=== PATIENT | female | born 1975 | race Caucasian/White ===

== ENCOUNTER 2019-02-01 10:05 | Observation (INO) | payer SELFPAY ==
[2019-02-01] VITALS (70 sets, daily range): BP systolic 141–249; BP diastolic 82–176; PULSE 66–126; RESP 11–22; TEMP 36.3–37; O2SAT 95–99
--- NOTE | 2019-02-01 10:32 | DI.CT_ITS ---
SYMPTOM/DIAGNOSIS: HEADACHE, SYNCOPE, HYPERTENSION, ? PE VS DISSECTION CRANIAL CT (WITHOUT CONTRAST): A noncontrast cranial CT was performed. The ventricular system is normal in appearance. There is no evidence of an intracranial mass lesion. There is no evidence of a subdural or epidural hematoma. No focal areas of decreased attenuation are seen. CONCLUSION: Normal noncontrast Cranial CT. CTA CERVICOCRANIAL: CT angiography was performed with multi slice acquisition and multi planar and 3D reconstruction. CTA HEAD AND CERVICAL: CT angiography was performed with multi slice acquisition and multi planar and 3D reconstruction. CT angiography of the neck and head was performed with bolus infusion of 100 cc's of Omnipaque 350. The visualized aortic arch and great vessels are unremarkable. There is normal appearance of the common carotid arteries bilaterally with no evidence of stenosis or aneurysm. Internal and external carotid arteries appear normal bilaterally with no evidence of stenosis or aneurysm formation. No cervical mass or adenopathy is seen. Tracheal laryngeal structures appear intact. Intracranial internal carotid arteries appear normal bilaterally with no evidence of aneurysm or stenosis. Anterior cerebral, middle cerebral and posterior cerebral arteries and major branches are unremarkable bilaterally with no evidence of aneurysm or stenosis. Right dominant vertebral artery noted. Borderline ectasia of ascending thoracic aorta noted at 41 mm. CONCLUSION: Negative CT angiography neck and head. PE CHEST CT: CT angiography was performed with multi slice acquisition and multi planar and 3D reconstruction. CT angiography of the chest was performed with intravenous infusion of 70 cc's of Omnipaque 350. There is a question of slight ground glass opacity in the lung bases versus mosaic attenuation, doubt acute process. Tracheobronchial tree appears intact. No evidence of pulmonary embolic disease. No thoracic aortic aneurysm or dissection seen. No pleural effusion. No mediastinal or hilar adenopathy. Heart is mildly enlarged. Images obtained through the upper abdomen show unremarkable appearance of visualized portions of the liver, spleen, pancreas, adrenals and kidneys and note is made of a prior cholecystectomy. CONCLUSION: No evidence of pulmonary embolic disease. Mild cardiomegaly.
--- NOTE | 2019-02-01 10:39 | ED.GENADUL_ITS ---
Discharge Plan Disposition Patient Disposition: [facility] INPATIENT Condition: Stable Discharge Details Chief Complaint: Dizzy/Sync Clinical Impression: Syncope, Hypertension, Non-ST elevation [place] (NSTEMI) Primary Care Provider: None,None ED Provider: Pineda Queen Home Meds and New Rx's Prescriptions: No Action No Known Home Meds RF: 0 Medical Decision Making This is a pleasant 43-year-old female with past medical history of hypertension not on any medications secondary to insurance issues, who presents today for evaluation of headache and syncope. She woke up with a headache this morning, she denies any red flags of it being the worst headache of her life, neck pain, seizure. She has no fever or chills. Physical exam demonstrates no neurologic deficits. Patient denies any concerning red flags of chest pain shortness of breath arm neck or shoulder pain or chest heaviness. Initial EKG demonstrates interesting inverted T waves in aVL, V5 and V6, posterior EKG was ordered demonstrates continued inverted T waves in V7, V8, and benign. Questionable less than 1 mm elevation in V1 and V2, no significant reciprocal ST depression, Q wave is present in lead III. No evidence of broad terminal S wave in lead I or inverted T wave in lead III. With no symptoms of chest pain, ACS is certainly unlikely but on the differential. PE is also on the differential but unlikely given her notably atypical symptomatology. With her uncontrolled hypertension, intracranial bleed or stroke is also on the differential. We will get imaging of the head neck and chest for further evaluation. We will rehydrate, treat for her headache, and reassess. 1:20 PM Patient's laboratory work-up has returned, mild white count, hemoglobin stable, electrolytes are normal except for slightly low potassium at 3.3, renal function stable, initial troponin is 0.11, proBNP is 707, with the evidence of inverted lateral T waves, mildly elevated troponin mildly elevated proBNP we did get a CT angios to definitively rule out dissection or PE, CT scan per radiologist is negative for any acute process. Questionable minimal atelectasis. CT scan of the head and neck including CT angios is negative for acute process. With the patient's mildly elevated troponin, mildly elevated proBNP, notable hypertension that has not been up with the 10 of labetalol IV and 25 of metoprolol, I do feel that admission for serial EKGs and troponins, with exercise stress test tomorrow morning is indicated. The patient has been given aspirin. Headache is notably improved at this time, and she continues to have no symptoms of chest pain. I discussed the case with Dr. Fernandez, I have extensively reviewed the treatment plan with the patient. I have addressed all patient concerns at this time. I have also discussed the plan with the admitting physician and they agree with the current assessment and plan and have agreed to assume responsibility for the patient. All parties demonstrate verbal understanding and agreement with our assessment and plan at this time. EKG 10: 15 Rate 96, sinus rhythm, occasional PVC, no significant ST elevations or depressions, inverted T wave is present in lead I, aVL, V5 and V6. no Q wave, no evidence of STEMI, less than [address] elevation in V1. These changes are new compared to EKG from 2006 EKG 10: 49/posterior EKG Rate 102, sinus tachycardia, intervals normal, posterior component of EKG demonstrates inverted T waves in V7, V8, and benign. No evidence of significant ST elevations or depressions. EXAM DATE/TIME: 02/01/2019 11:25 AM CLINICAL HISTORY: 43 years old, female; Signs and symptoms; Other: Syncope, R/O pe vs dissection; Additional info: Syncope, R/O pe vs dissection HX hbp TECHNIQUE: Imaging protocol: Axial computed tomographic angiography images of the chest with intravenous contrast using CT angiography protocol. Coronal and sagittal reformatted images were created and reviewed. 3D rendering: MIP reconstructed images were created and reviewed. Radiation optimization: All CT scans at this facility use at least one of these dose optimization techniques: automated exposure control; mA and/or kV adjustment per patient size (includes targeted exams where dose is matched to clinical indication); or iterative reconstruction. Contrast material: OMNIPAQUE 350; Contrast volume: 70 ml; Contrast route: IV; COMPARISON: No relevant prior studies available. FINDINGS: Pulmonary arteries: Negative for acute pulmonary embolism. Aorta: Normal. No aortic aneurysm. No aortic dissection. Lungs: Patchy groundglass densities bilaterally, nonspecific finding. Differential includes infectious process, chronic interstitial disease, and acute alveolar disease. Clinical correlation necessary. Pleural space: Normal. No pneumothorax. No pleural effusion. Heart: Normal. No cardiomegaly. No pericardial effusion. Lymph nodes: Unremarkable. No enlarged lymph nodes. Bones/joints: Unremarkable. No acute fracture. Soft tissues: Unremarkable. IMPRESSION: 1. Negative for acute pulmonary embolism. 2. Patchy groundglass densities bilaterally, nonspecific finding. Differential includes infectious process, chronic interstitial disease, and acute alveolar disease. Clinical correlation necessary. Dictated and Authenticated by: Cecilia Zhou MD. Ordering:ROYA Sung MD Comparison: No relevant prior studies available. Findings: Brain: Central and cortical brain atrophy evident, appropriate for patient age. There is nonspecific periventricular low attenuation, likely microangiopathic disease. No acute intracranial hemorrhage. Ventricles: Normal. No ventriculomegaly. Bones/joints: Unremarkable. No acute fracture. Sinuses: Visualized sinuses are unremarkable. No acute sinusitis. Mastoid air cells: Visualized mastoid air cells are unremarkable. No mastoid effusion. Soft tissues: Unremarkable. Impression: No acute intracranial abnormality. Dictated and Authenticated by: Cecilia Zhou MD. Ordering:ROYA Sung MD EXAM DATE/TIME: 02/01/2019 10:37 AM CLINICAL HISTORY: 43 years old, female; Signs and symptoms; Other: Headache, syncope, hypertension Technique: Imaging protocol: Axial computed tomographic angiography images of the head with intravenous contrast using CT angiography protocol. Coronal reformatted images were created and reviewed. 3D rendering: MIP reconstructed images were created and reviewed. Radiation optimization: All CT scans at this facility use at least one of these dose optimization techniques: automated exposure control; mA and/or kV adjustment per patient size (includes targeted exams where dose is matched to clinical indication); or iterative reconstruction. Contrast material: OMNIPAQUE 350; Contrast volume: 78 ml; Contrast route: IV; Comparison: CT Private HEAD ROUTINE (Adult) 02/01/2019 11:56 AM Findings: Right internal carotid artery: Unremarkable. Intracranial segment is patent with no significant stenosis. No aneurysm. Right anterior cerebral artery: Unremarkable. No occlusion or significant stenosis. No aneurysm. Right middle cerebral artery: Unremarkable. No occlusion or significant stenosis. No aneurysm. Right posterior cerebral artery: Unremarkable. No occlusion or significant stenosis. No aneurysm. Right vertebral artery: Unremarkable. No occlusion or significant stenosis. No aneurysm. Left internal carotid artery: Unremarkable. Intracranial segment is patent with no significant stenosis. No aneurysm. Left anterior cerebral artery: Unremarkable. No occlusion or significant stenosis. No aneurysm. Left middle cerebral artery: Unremarkable. No occlusion or significant stenosis. No aneurysm. Left posterior cerebral artery: Unremarkable. No occlusion or significant stenosis. No aneurysm. Left vertebral artery: Unremarkable. No occlusion or significant stenosis. No aneurysm. Basilar artery: Unremarkable. No occlusion or significant stenosis. No aneurysm. Impression: No acute findings. Exam: CT Angiography Neck With Contrast EXAM DATE/TIME: 02/01/2019 10:37 AM CLINICAL HISTORY: 43 years old, female; Signs and symptoms; Other: Headache, syncope, hypertension Technique: Imaging protocol: Axial computed tomographic angiography images of the neck with intravenous contrast using CT angiography protocol. Coronal reformatted images were created and reviewed. 3D rendering: MIP reconstructed images were created and reviewed. Radiation optimization: All CT scans at this facility use at least one of these dose optimization techniques: automated exposure control; mA and/or kV adjustment per patient size (includes targeted exams where dose is matched to clinical indication); or iterative reconstruction. Contrast material: OMNIPAQUE 350; Contrast volume: 78 ml; Contrast route: IV; Comparison: CT Private HEAD ROUTINE (Adult) 02/01/2019 11:56 AM Findings: VASCULATURE: Right common carotid artery: Normal. No significant stenosis. No dissection or occlusion. Right internal carotid artery: Normal. Extracranial segment is patent with no significant stenosis. No dissection or occlusion. Right external carotid artery: Normal. No occlusion or significant stenosis. Right vertebral artery: Right vertebral artery is dominant. Left common carotid artery: Normal. No significant stenosis. No dissection or occlusion. Left internal carotid artery: Normal. Extracranial segment is patent with no significant stenosis. No dissection or occlusion. Left external carotid artery: Normal. No occlusion or significant stenosis. Left vertebral artery: Normal. No significant stenosis. No dissection or occlusion. NECK: Bones/joints: No acute fracture. Soft tissues: Normal. No significant soft tissue swelling. Impression: No significant stenosis or occlusion. COMMENT: Reference per NASCET criteria for degree of stenosis: Mild: less than 50% stenosis. Moderate: 50-69% stenosis. Severe: 70-94% stenosis. Near occlusion: 95-99% stenosis. Dictated and Authenticated by: Cecilia Zhou MD. Ordering:ROYA Sung MD HPI General Date/Time Provider Initiated Documentation: 02/01/19 10:11 . HPI Narrative: This is a pleasant 44-year-old female with past medical history of hypertension and migraines for which she does not take any medication secondary to lack of insurance and cost, who presents today for evaluation of headache and syncope. Patient states that this morning she woke up with a headache, which is definitely not the worst headache of her life. There is mild to moderate in nature and she states that it feels like it is a combination of her chronic migraines and headache secondary to hypertension. Patient states that she felt nauseous throughout the day, and then later this morning went to vomit, however as she was walking to vomit she syncopized, fell and hit the left side of her face. She was able to get up and walk around after this but did feel notably lightheaded after that event. She denies any vision changes, or headache red flags of worst headache of life, thunderclap headache, neck pain, fever, chills, concerning family history of polycystic kidney disease, Marfan syndrome, Sanjiv- Danlos syndrome, abdominal aortic aneurysm, aortic dissection, or intracranial aneurysm. She denies any neck pain, chest pain, chest tightness, pleuritic chest pain, shortness of breath, chest heaviness. She denies any previous cardiac disease. Denies PE risk factors such as recent long car rides, immobilization, recent surgery, prior history of DVT or PE, family history of PE or DVT, morbid obesity, exogenous estrogen and smoking, hemoptysis, history of cancer. Related Data Home Medications Medication Instructions Recorded Confirmed Unknown [No Known Home Meds] 02/01/19 02/01/19 Allergies Allergy/AdvReac Type Severity Reaction Status Date / Time No Known Allergies Allergy Unverified 02/01/19 12:38 General Stated Complaint: GenMedical SASHA: 3 Review of Systems Review of Systems All systems reviewed & are unremarkable except as noted in HPI and below PFSH Social History Smoking/Tobacco Use Status: Current every day Tobacco Type: cigarettes Smoking cigarettes per day: 5 Substance use type: does not use Exam Narrative Exam Narrative: 1.Const: Well-nourished, Well-developed, appearing stated age 2.Eyes: PERRL, no conjunctival injection, and symmetrical lids. Minimal horizontal nystagmus, no vertical or rotatory nystagmus. 3.ENT: Atraumatic external nose and ears. Moist MM. Neck: Symmetric, trachea midline, No thyromegaly. Small bruise over her left lateral orbit. There is no evidence of raccoon eyes, álvarez sign, CSF rhinorrhea, mastoid tenderness, cranial crepitus, hemotympanum, exophthalmos, or hyphema. Patient demonstrates intact dentition with no signs of tooth avulsion or fracture, no signs of jaw deformity, no evidence of a LeFort's fracture, with an intact palate, nose and orbital region. There is no evidence of a nasal septal hematoma. No proptosis. Jaw closes symmetrically. Airway is clear. Patient demonstrates good movement of cervical neck. There is no nuchal rigidity, no nuchal tenderness. Patient is able to flex the neck without any difficulty or significant pain. Negative Kernig's and Brudzinski sign. 4.CVS: +S1/S2, No murmurs or gallops. Peripheral pulses 2+ and equal in all extremities. Brisk capillary refill in all extremities. 5.RESP: Unlabored respiratory effort. Clear to auscultation bilaterally. No wheezes rales or rhonchi 6.GI: Soft, Nontender/Nondistended, No hepatosplenomegaly. No guarding or hermila ound. 7.MSK: Normocephalic/Atraumatic, Extremities w/o deformity or ttp No cyanosis or clubbing, Normal movement of all extremities 8.Skin: Warm, Dry. No rashes or lesions. 9.Neuro: project intern II-XII grossly intact. Sensation grossly intact, no focal neurologic deficits. All 6 cardinal planes of vision are fully intact. No evidence of rotatory or vertical nystagmus. The patient demonstrated a normal [id number], good dexterity. There was no evidence of dysdiadochokinesia. Patient was able to ambulate without difficulty. There was no wide-based gait. Romberg, and [id number] are both normal on testing. Sensation was intact bilaterally as well as muscle strength bilaterally for all extremities. Patient was able to verbalize butter cup with no slurring, or miss pronunciation. 10.Psych: (AAO) x3. Appropriate mood and affect Course Vital Signs Temperature 37 C 02/01/19 10:22 Pulse 99 H 02/01/19 10:22 Respiratory Rate 21 02/01/19 10:22 Blood Pressure 192/113 H 02/01/19 10:22 Pulse Oximetry 98 02/01/19 10:22 Temperature 37 C 02/01/19 10:22 Temperature Source Skin 02/01/19 10:22 Pulse 99 H 02/01/19 10:22 Respiratory Rate 21 02/01/19 10:22 Blood Pressure 192/113 H 02/01/19 10:22 Blood Pressure Position Sitting 02/01/19 10:22 Pulse Oximetry 98 02/01/19 10:22 Oxygen Delivery Method Room Air 02/01/19 10:22 Oxygen Flow Rate 0 02/01/19 10:22
[2019-02-01] MEDS: Metoprolol 25 MG TAB PO ×2 (10:40→19:09)
[2019-02-01] MEDS: Acetaminophen 500 MG TAB 1000 MG PO (10:40)
[2019-02-01] MEDS: Normal Saline 1,000 ML 1000 ML IV (10:45)
[2019-02-01] MEDS: methylPREDNISolone SUCC 125 MG VIAL IVP (10:45)
[2019-02-01 10:48] LABS: Abs Immature Grans 0.04 k/cumm (0.0-0.09); Absolute Eosinophil Count 0.11 k/cumm (0.0-0.7); Absolute Lymphocyte Count 1.52 k/cumm (1.2-3.4); Absolute Monocyte Count 0.89 k/cumm (0.11-0.7); Basophils % 0.2; Eosinophils % 0.9; HCT 43.3 % (36.0-46.0); HGB 14.3 g/dL (12.0-15.5); Immature Grans % 0.3; Lymphocytes % 12.3; Mean Corpuscular Hemoglobin 26.8 pg (27.0-33.0); Mean Corpuscular Volume 81.2 fL (80-95); Monocytes % 7.2; Neutrophils % 79.1; Platelet Count 283 x1000/uL (130-400); RBC 5.33 m/cumm (4.00-5.20); RBC Distribution Width 13.9 % (11.7-14.6); White Blood Cell Count 12.35 k/cumm (4.4-10.8)
[2019-02-01 10:49] LABS: Absolute Basophil Count 0.02 k/cumm (0.0-0.2); Absolute Neutrophil Count 9.77 k/cumm (1.2-6.7)
[2019-02-01] MEDS: Metoclopramide 10 MG/2 ML VIAL IVP (11:00)
[2019-02-01 11:09] LABS: ALT 41 U/L (12-78); AST 15 U/L (15-37); Albumin 3.5 g/dL (3.4-5.0); Alkaline Phosphatase 82 U/L (46-116); BUN 11 mg/dL (7-18); Bilirubin, Total 0.4 mg/dL (0.2-1.0); CREATININE 0.97 mg/dL (0.55-1.02); Calcium 8.6 mg/dL (8.5-10.1); Chloride 101 mmol/L (98-107); Glucose 128 mg/dL (70-100); NT-proBNP 707 pg/mL; Potassium 3.3 mmol/L (3.5-5.1); Sodium 138 mmol/L (136-145); TSH (W/Ref FT4) 3.15 uIU/mL (0.358-3.74); Total Protein 8.3 g/dL (6.4-8.2)
[2019-02-01] MEDS: diphenhydrAMINE 50 MG/ML VIAL 25 MG IVP (11:10)
[2019-02-01 11:18] LABS: Troponin I 0.11 ng/mL (0.00-0.06)
[2019-02-01 11:19] LABS: D-Dimer 366 ng/mlFEU (<500)
--- NOTE | 2019-02-01 12:28 | DI.VRAD_ITS ---
EXAM: CT Head Without Contrast EXAM DATE/TIME: 02/01/2019 10:37 AM CLINICAL HISTORY: 43 years old, female; Signs and symptoms; Other: Headache, syncope, hypertension TECHNIQUE: Imaging protocol: Axial computed tomography images of the head/brain without contrast. Coronal and sagittal reformatted images were created and reviewed. Radiation optimization: All CT scans at this facility use at least one of these dose optimization techniques: automated exposure control; mA and/or kV adjustment per patient size (includes targeted exams where dose is matched to clinical indication); or iterative reconstruction. COMPARISON: No relevant prior studies available. FINDINGS: Brain: Central and cortical brain atrophy evident, appropriate for patient age. There is nonspecific periventricular low attenuation, likely microangiopathic disease. No acute intracranial hemorrhage. Ventricles: Normal. No ventriculomegaly. Bones/joints: Unremarkable. No acute fracture. Sinuses: Visualized sinuses are unremarkable. No acute sinusitis. Mastoid air cells: Visualized mastoid air cells are unremarkable. No mastoid effusion. Soft tissues: Unremarkable. IMPRESSION: No acute intracranial abnormality. Dictated and Authenticated by: Cecilia Zhou MD. Ordering:ROYA Sung MD
--- NOTE | 2019-02-01 12:49 | DI.VRAD_ITS ---
EXAM: CT Angiography Chest With Contrast EXAM DATE/TIME: 02/01/2019 11:25 AM CLINICAL HISTORY: 43 years old, female; Signs and symptoms; Other: Syncope, R/O pe vs dissection; Additional info: Syncope, R/O pe vs dissection HX hbp TECHNIQUE: Imaging protocol: Axial computed tomographic angiography images of the chest with intravenous contrast using CT angiography protocol. Coronal and sagittal reformatted images were created and reviewed. 3D rendering: MIP reconstructed images were created and reviewed. Radiation optimization: All CT scans at this facility use at least one of these dose optimization techniques: automated exposure control; mA and/or kV adjustment per patient size (includes targeted exams where dose is matched to clinical indication); or iterative reconstruction. Contrast material: OMNIPAQUE 350; Contrast volume: 70 ml; Contrast route: IV; COMPARISON: No relevant prior studies available. FINDINGS: Pulmonary arteries: Negative for acute pulmonary embolism. Aorta: Normal. No aortic aneurysm. No aortic dissection. Lungs: Patchy groundglass densities bilaterally, nonspecific finding. Differential includes infectious process, chronic interstitial disease, and acute alveolar disease. Clinical correlation necessary. Pleural space: Normal. No pneumothorax. No pleural effusion. Heart: Normal. No cardiomegaly. No pericardial effusion. Lymph nodes: Unremarkable. No enlarged lymph nodes. Bones/joints: Unremarkable. No acute fracture. Soft tissues: Unremarkable. IMPRESSION: 1. Negative for acute pulmonary embolism. 2. Patchy groundglass densities bilaterally, nonspecific finding. Differential includes infectious process, chronic interstitial disease, and acute alveolar disease. Clinical correlation necessary. Dictated and Authenticated by: Cecilia Zhou MD. Ordering:ROYA Sung MD
[2019-02-01] MEDS: Aspirin 325 MG TAB PO (13:00)
--- NOTE | 2019-02-01 13:02 | DI.VRAD_ITS ---
EXAM: CT Angiography Head With Contrast EXAM DATE/TIME: 02/01/2019 10:37 AM CLINICAL HISTORY: 43 years old, female; Signs and symptoms; Other: Headache, syncope, hypertension TECHNIQUE: Imaging protocol: Axial computed tomographic angiography images of the head with intravenous contrast using CT angiography protocol. Coronal reformatted images were created and reviewed. 3D rendering: MIP reconstructed images were created and reviewed. Radiation optimization: All CT scans at this facility use at least one of these dose optimization techniques: automated exposure control; mA and/or kV adjustment per patient size (includes targeted exams where dose is matched to clinical indication); or iterative reconstruction. Contrast material: OMNIPAQUE 350; Contrast volume: 78 ml; Contrast route: IV; COMPARISON: CT Private^HEAD ROUTINE (Adult) 02/01/2019 11:56 AM FINDINGS: Right internal carotid artery: Unremarkable. Intracranial segment is patent with no significant stenosis. No aneurysm. Right anterior cerebral artery: Unremarkable. No occlusion or significant stenosis. No aneurysm. Right middle cerebral artery: Unremarkable. No occlusion or significant stenosis. No aneurysm. Right posterior cerebral artery: Unremarkable. No occlusion or significant stenosis. No aneurysm. Right vertebral artery: Unremarkable. No occlusion or significant stenosis. No aneurysm. Left internal carotid artery: Unremarkable. Intracranial segment is patent with no significant stenosis. No aneurysm. Left anterior cerebral artery: Unremarkable. No occlusion or significant stenosis. No aneurysm. Left middle cerebral artery: Unremarkable. No occlusion or significant stenosis. No aneurysm. Left posterior cerebral artery: Unremarkable. No occlusion or significant stenosis. No aneurysm. Left vertebral artery: Unremarkable. No occlusion or significant stenosis. No aneurysm. Basilar artery: Unremarkable. No occlusion or significant stenosis. No aneurysm. IMPRESSION: No acute findings. EXAM: CT Angiography Neck With Contrast EXAM DATE/TIME: 02/01/2019 10:37 AM CLINICAL HISTORY: 43 years old, female; Signs and symptoms; Other: Headache, syncope, hypertension TECHNIQUE: Imaging protocol: Axial computed tomographic angiography images of the neck with intravenous contrast using CT angiography protocol. Coronal reformatted images were created and reviewed. 3D rendering: MIP reconstructed images were created and reviewed. Radiation optimization: All CT scans at this facility use at least one of these dose optimization techniques: automated exposure control; mA and/or kV adjustment per patient size (includes targeted exams where dose is matched to clinical indication); or iterative reconstruction. Contrast material: OMNIPAQUE 350; Contrast volume: 78 ml; Contrast route: IV; COMPARISON: CT Private^HEAD ROUTINE (Adult) 02/01/2019 11:56 AM FINDINGS: VASCULATURE: Right common carotid artery: Normal. No significant stenosis. No dissection or occlusion. Right internal carotid artery: Normal. Extracranial segment is patent with no significant stenosis. No dissection or occlusion. Right external carotid artery: Normal. No occlusion or significant stenosis. Right vertebral artery: Right vertebral artery is dominant. Left common carotid artery: Normal. No significant stenosis. No dissection or occlusion. Left internal carotid artery: Normal. Extracranial segment is patent with no significant stenosis. No dissection or occlusion. Left external carotid artery: Normal. No occlusion or significant stenosis. Left vertebral artery: Normal. No significant stenosis. No dissection or occlusion. NECK: Bones/joints: No acute fracture. Soft tissues: Normal. No significant soft tissue swelling. IMPRESSION: No significant stenosis or occlusion. COMMENT: Reference per NASCET criteria for degree of stenosis: Mild: less than 50% stenosis. Moderate: 50-69% stenosis. Severe: 70-94% stenosis. Near occlusion: 95-99% stenosis. Dictated and Authenticated by: Cecilia Zhou MD. Ordering:ORYA Sung MD
[2019-02-01] MEDS: Labetalol 100 MG/20 ML VIAL 10 MG IVP (13:05)
[2019-02-01] MEDS: POTASSIUM CHLORIDE 20 MEQ/100 ML BAG 50 MEQ IVPB (13:42)
[2019-02-01] MEDS: Potassium Chloride 20 MEQ TABCR 40 MEQ PO (13:42)
[2019-02-01] MEDS: hydroCHLOROthiazide 25 MG TAB PO (13:47)
[2019-02-01] MEDS: Normal Saline 1,000 ML 75 ML IV (14:30)
--- NOTE | 2019-02-01 14:39 | HPE_ITS ---
Date of service: 02/01/19 Time of Service: 14:06 Assessment and Plan (1) Syncope: Current visit: Yes Status: Acute Given the description of syncope associated with feeling nausea, I suspect this was vasovagal - however, given the history of enlarged heart, I wonder if she does not have a type of cardiomyopathy that could have contributed. Additionally, I do see evidence of borderline elevated troponin. Ms Jarrett will be monitored on telemetry with serial troponins, repeat EKG in am, echo and carotid ultrasound. She could also benefit from a stress test once her BP is controlled. (2) Hypertensive urgency: Current visit: Yes Status: Acute Vs emergency. Resume prior outpatient therapy. Prior to resuming diovan, however, I would like to check her aldosterone to renin ratio - I see that somehow this was already once checked in 2017 - I do not have access to notes to explain this. However, I see that that was not an am draw, and I also do not know what medications she was on at that time. I think it is important to recheck this because, perhaps, she could be a successful candidate for spironolactone therapy. She would have to complete the remainder of the workup of 2ndary causes of hypertension as an outpatient. The patient will have prn IV lopressor. She will be monitored on tele and serial troponins will be obtained. Her echo will be checked. (3) Elevated troponin: Current visit: Yes Status: Acute As above. Monitor on tele, obtain serial troponins, check EKG, echo in am and make NPO for stress test. May require cardiology consult depending on course. (4) Enlarged heart: Current visit: Yes Status: Acute Obtaining echo to ensure the patient does not have a cardiomyopathy (5) Ground glass opacity present on imaging of lung: Current visit: Yes Status: Acute Seen on CT; This is nonspecific. The patient reports no respiratory symptoms, but could have aspirated. There is a mild leucocytosis, but she also had nausea/vomiting this am, and this could be due to this. Right now, I am inclined to think that this is due chronic changes rather than aspiration pneumonitis, but will monitor clinically. Certainly, if O2 requirement increases or she develops a fever, we will initiated antibiotics. (6) Leucocytosis: Current visit: Yes Status: Acute as above (7) Headache: Current visit: Yes Status: Acute While the patient does not think she had a migraine, she responded to migraine therapy. Additionally, this could have been due to untreated suspected sleep apnea/hypoxia overnight or a tension headache or a symptom of untreated hypertension. This will have to be followed up as outpatient. (8) Tobacco abuse: Current visit: Yes Status: Acute Advised to quit. Provide nicotine patch (9) Snoring: Current visit: Yes Status: Chronic I have a strong suspicion that this is due to obstructive sleep apnea, which hasn't been properly worked up yet. Recommend sleep study as outpatient. (10) Discharge planning issues: Current visit: Yes Status: Acute Full code. The patient does not have medical insurance and states she cannot afford her medications. She is from [place]. (11) DVT prophylaxis: Current visit: Yes Status: Acute Lovenox + SCDs + TEDs History of Present Illness Chief Complaint: headache, fainted after feeling dizzy Narrative: Ms Jarertt is a 43 year old female from [place] with PMHx of hypertension, previously requiring 3 medications, but no longer on therapy due to lack of insurance, as well as history of enlarged heart, prior hospitalizations for hypertensive crises, migraines, obesity with BMI of 40 and undiagnosed snoring who presented to [facility] today after having a syncopal episode on her deck. The patient states that she woke up this morning with a headache all over her head, not like her usual migraines because it wasn't accompanied by sensitivity to light. She went to the deck and felt nauseated there. She states that she thought she might vomit, so she came to the edge of the deck - and the next thing she remembers is waking up, having hit her L latter-day. Her ex- witnessed the episode and states that she was vomiting while she was unconscious and unresponsive. He did not see convulsive activity. The patient denies dizziness, palpitations, chest pain, or shortness of breath before or since the episode. She is confident that what happened today was not her usual migraine. In the ED, she was treated with a migraine cocktail with resolution of the headache. She was found to be hypertensive to as high as 249/176. She was given PO lopressor, IV labetalol 10 mg, and now PO HCTZ in treatment of her hypertension. Her BP is now 193/119. Additionally, her workup revealed lateral T wave inversions (V4-V6, unclear if this is new). Her troponin was 0.11. The patient states that at home she does occasionally measure her BP and it's not unusual for it to be in the SBP 170-180 range. She remembers that she used to take lisinopril, but it caused her to have a cough. She was then switched to a combination of diovan 240 mg PO daily, HCTZ 25 mg PO daily and metoprolol 50 mg PO daily. She does not remember ever doing workup of secondary causes of hypertension. She does recall once being hospitalized for 3 days because her blood pressure were so high. She also recalls that she was once told that she had an enlarged heart. Review of Systems Review of Systems 12 systems reviewed. Pertinent positives and negatives as as per HPI. Additionally, the patient does report snoring and stopping breathing at night. She was previously told she had to have a sleep study, but hasn't been able to get it done yet. PFSH Medical History Enlarged heart (Chronic) Migraines (Chronic) Obesity (BMI 30-39.9) (Chronic) Snoring (Chronic) Uncontrolled hypertension (Chronic) Hypertensive emergency (Resolved) Surgical History Hx of cholecystectomy (Chronic) Family History Maternal Grandmother Cancer Maternal Grandfather Cancer Other Hypertension Social History Smoking/Tobacco Use Status: Current every day Tobacco Type: cigarettes Smoking cigarettes per day: 5 Alcohol Intake: current Alcohol Intake frequency: holidays/special occasions only Substance use type: does not use Female Reproductive History Menstrual control method: none Meds Home Medications Medication Instructions Recorded Confirmed Type Unknown [No Known Home Meds] 02/01/19 02/01/19 History Allergies Allergy/AdvReac Type Severity Reaction Status Date / Time No Known Allergies Allergy Unverified 02/01/19 12:38 Exam Narrative Exam Narrative: General: Very pleasant obese female, sitting up in bed, NAD Neurological: A&Ox3, no focal deficits Psychiatric: appropriate speech pattern/content Skin: small abrasion over L latter-day/upper eyelid; otherwise, intact HEENT: Normocephalic, EOMI, MMM, clear oropharynx, no submandibular or cervical lymphadenopathy, ?small goiter, no JVD. + hirsutism Cardiovascular: RRR, no m/r/g Lungs: CTAB Gastrointestinal: abdomen is soft, nontender, nondistended Extremities: 2+ pedal pulses B, no e/c/c BLE's Results Imaging Additional studies: CTA head/neck: No acute intracranial abnormality. No acute findings. CTA chest: 1. Negative for acute pulmonary embolism. 2. Patchy groundglass densities bilaterally, nonspecific finding. Differential includes infectious process, chronic interstitial disease, and acute alveolar disease. Clinical correlation necessary. Labs : 02/01/19 10:40 02/01/19 10:40 Laboratory Results - last 24 hr 02/01/19 02/01/19 02/01/19 10:40 10:40 10:40 WBC 12.35 H RBC 5.33 H Hgb 14.3 Hct 43.3 MCV 81.2 MCH 26.8 L MCHC 33.0 RDW 13.9 Plt Count 283 MPV 10.0 Immature Gran % 0.3 Neutrophils % 79.1 Lymphocytes % 12.3 Monocytes % 7.2 Eosinophils % 0.9 Basophils % 0.2 Absolute Neutrophils 9.77 H Absolute Lymphocytes 1.52 Absolute Monocytes 0.89 H Absolute Eosinophils 0.11 Absolute Basophils 0.02 D-Dimer 366 Sodium 138 Potassium 3.3 L Chloride 101 Carbon Dioxide 28.0 Anion Gap 9.0 BUN 11 Creatinine 0.97 Estimated GFR/1.73 m2 >= 60.00 Glucose 128 H Calcium 8.6 Total Bilirubin 0.4 AST 15 ALT 41 Alkaline Phosphatase 82 Troponin I 0.11 H* NT-Pro-B Natriuret Pep 707 H Total Protein 8.3 H Albumin 3.5 TSH 3.15 Last Vital Signs Temp 37 C 02/01/19 10:22 Pulse 84 02/01/19 13:55 Resp 21 02/01/19 13:55 BP 193/119 H 02/01/19 13:55 Pulse Ox 98 02/01/19 13:55
[2019-02-01] MEDS: amLODIPine 5 MG TAB PO ×2 (15:03→19:09)
[2019-02-01] MEDS: Enoxaparin 40 MG/0.4 ML SYR SC (15:32)
[2019-02-01] MEDS: Metoprolol 5 MG/5 ML VIAL IVP (17:00)
--- NOTE | 2019-02-01 17:12 | NUR.NOTE ---
Nursing Note: Pt was admitted in Rm 208, sitting on the chair calmly. B/P at 1700 hrs. was 190/118 W[place] 94. c/o lightheadedness , Metoprolol 5 mg IVP PRN administered. Visitors around and pt tolerated supper without issues.
[2019-02-01 18:31] LABS: Troponin I 0.12 ng/mL (0.00-0.06)
[2019-02-01] MEDS: Omnipaque 350 MG/ML 100 ML BTL IV (19:14)
[2019-02-01] MEDS: Omnipaque 350 MG/ML 100 ML BTL IJ (19:16)
[2019-02-01 20:15] LABS: Hemoglobin A1C 5.7 % (4.5-6.2)
--- NOTE | 2019-02-01 22:08 | NUR.NOTE ---
Nursing Note: At 2100 Hrs B/P was 220/134, HR 98, MD notified by store team leader and ordered to be transferred to ICU. Report given to NYA Guido, pt is in room 221.,
[2019-02-02] VITALS (45 sets, daily range): BP systolic 122–191; BP diastolic 67–115; PULSE 66–93; RESP 8–23; TEMP 36.3–37.2; O2SAT 94–99
--- NOTE | 2019-02-02 00:32 | W.PM.PROGNOT ---
Date of Service Date of service: 02/02/19 Time of Service: 00:32 Assessment and Plan (1) Hypertensive urgency: Start date: 02/01/19 Current visit: Yes Status: Acute This is a 43-year-old lady with uncontrolled hypertension with oral therapy and intermittent IV Lopressor dosing. Because of the possibility of decompensation she was moved to the ICU for labetalol infusion and was started on the lowest dose with her systolic blood pressure of responding coming down towards 140 with treatment. When she was moved to the ICU her systolic was above 200 and her diastolic was above 120. She was labile and had possibility of decompensation prompting ICU admission. She is asymptomatic and blood pressure is now controlled with labetalol to be adjusted and turned off and back on through the night until her oral therapy can be adjusted and there is less lability of her blood pressure. Also her troponins which were intermediate and trending up will be followed more closely. She is a full code. 45 minutes critical care time was spent managing this patient field education coordinator until deemed stable with treatment and plan. Subjective Interval history since last seen: This is a 43-year-old lady was admitted for uncontrolled hypertension with headache and syncopal episode striking her head just before admission. I was called by the floor nurse that the patient's blood pressure was still uncontrolled having received 1 dose of labetalol in the ER and a a total of 10 mg of Norvasc with hydrochlorothiazide 25 mg dose being given. She also had IV metoprolol ordered as needed and at first responded this but then her systolic went above 180. I adjusted her oral metoprolol and she got 1 dose and was still hypertensive though asymptomatic. Of note her troponins were in the intermediate level and slightly increasing. Because of possible risk of decompensation the patient was moved to the ICU for a labetalol infusion and closer monitoring. Exam Narrative Exam Narrative: Patient physical exam was stable from admission, she was in no acute distress and alert and oriented x3. Her head did reveal slight linear ecchymotic area over the lateral aspect of her left eye and scientologist region. Eyes normal with pupils equal reactive to light. Heart had regular rate and rhythm with no murmurs gallops appreciated and lungs were clear. Extremities had no edema and her neurological exam is intact. (She was not complaining of a headache at the time of the exam). Objective Objective Clinical Data: Abnormal lab results 02/01/19 02/01/19 02/01/19 Range/Units 10:40 10:40 18:00 WBC 12.35 H (4.4-10.8) k/cumm RBC 5.33 H (4.00-5.20) m/cumm MCH 26.8 L (27.0-33.0) pg Absolute Neutrophils 9.77 H (1.2-6.7) k/cumm Absolute Monocytes 0.89 H (0.11-0.7) k/cumm Potassium 3.3 L (3.5-5.1) mmol/L Glucose 128 H (70-100) mg/dL Troponin I 0.11 H* 0.12 H* (0.00-0.06) ng/mL NT-Pro-B Natriuret Pep 707 H ( - 299) pg/mL Total Protein 8.3 H (6.4-8.2) g/dL Vital Signs Temperature 36.3 C L 02/01/19 21:53 Temperature Source Temporal Artery Scan 02/01/19 21:53 Pulse 90 02/01/19 22:51 Pulse Rhythm Regular 02/01/19 15:35 Pulse 93 H 02/01/19 22:51 Respiratory Rate 18 02/01/19 22:51 Respiratory Effort Non-Labored 02/01/19 21:15 Respiratory Depth Normal 02/01/19 21:15 Respiratory Pattern Normal 02/01/19 21:15 Blood Pressure 144/84 H 02/01/19 22:51 Blood Pressure Mean 99 02/01/19 22:51 Blood Pressure Position Supine 02/01/19 21:15 Pulse Oximetry 96 02/01/19 22:51 Oxygen Delivery Method Room Air 02/01/19 21:53 Oxygen Flow Rate 0 02/01/19 21:53 Pain Level 2 02/01/19 21:53 Comment 02/01/19 21:53 Intake & Output 02/01/19 02/01/19 02/02/19 11:59 23:59 11:59 Intake Total 1520 / 1520 Balance 1520 / 1520 Weight 115.6 kg 114.4 kg Intake: IV 1040 / 1040 Oral 480 / 480 Other: Urine Appearance Clear Voiding Methods Toilet Laboratory Results WBC 12.35 k/cumm (4.4-10.8) H 02/01/19 10:40 RBC 5.33 m/cumm (4.00-5.20) H 02/01/19 10:40 Hgb 14.3 g/dL (12.0-15.5) 02/01/19 10:40 Hct 43.3 % (36.0-46.0) 02/01/19 10:40 MCV 81.2 fL (80-95) 02/01/19 10:40 MCH 26.8 pg (27.0-33.0) L 02/01/19 10:40 MCHC 33.0 g/dL (32.0-36.0) 02/01/19 10:40 RDW 13.9 % (11.7-14.6) 02/01/19 10:40 Plt Count 283 x1000/uL (130-400) 02/01/19 10:40 MPV 10.0 fL (8.0-11.0) 02/01/19 10:40 Immature Gran % 0.3 02/01/19 10:40 Neutrophils % 79.1 02/01/19 10:40 Lymphocytes % 12.3 02/01/19 10:40 Monocytes % 7.2 02/01/19 10:40 Eosinophils % 0.9 02/01/19 10:40 Basophils % 0.2 02/01/19 10:40 Absolute Neutrophils 9.77 k/cumm (1.2-6.7) H 02/01/19 10:40 Absolute Lymphocytes 1.52 k/cumm (1.2-3.4) 02/01/19 10:40 Absolute Monocytes 0.89 k/cumm (0.11-0.7) H 02/01/19 10:40 Absolute Eosinophils 0.11 k/cumm (0.0-0.7) 02/01/19 10:40 Absolute Basophils 0.02 k/cumm (0.0-0.2) 02/01/19 10:40 D-Dimer 366 ng/mlFEU (<500) 02/01/19 10:40 Sodium 138 mmol/L (136-145) 02/01/19 10:40 Potassium 3.3 mmol/L (3.5-5.1) L 02/01/19 10:40 Chloride 101 mmol/L (98-107) 02/01/19 10:40 Carbon Dioxide 28.0 mmol/L (21.0-32.0) 02/01/19 10:40 Anion Gap 9.0 mmol/L (3-11) 02/01/19 10:40 BUN 11 mg/dL (7-18) 02/01/19 10:40 Creatinine 0.97 mg/dL (0.55-1.02) 02/01/19 10:40 Estimated GFR/1.73 m2 >= 60.00 (mL/min/1.73m2) 02/01/19 10:40 Glucose 128 mg/dL (70-100) H 02/01/19 10:40 Hemoglobin A1c 5.7 % (4.5-6.2) 02/01/19 18:00 Calcium 8.6 mg/dL (8.5-10.1) 02/01/19 10:40 Total Bilirubin 0.4 mg/dL (0.2-1.0) 02/01/19 10:40 AST 15 U/L (15-37) 02/01/19 10:40 ALT 41 U/L (12-78) 02/01/19 10:40 Alkaline Phosphatase 82 U/L (46-116) 02/01/19 10:40 Troponin I 0.12 ng/mL (0.00-0.06) H* 02/01/19 18:00 NT-Pro-B Natriuret Pep 707 pg/mL (-299) H 02/01/19 10:40 Total Protein 8.3 g/dL (6.4-8.2) H 02/01/19 10:40 Albumin 3.5 g/dL (3.4-5.0) 02/01/19 10:40 TSH 3.15 uIU/mL (0.358-3.74) 02/01/19 10:40
[2019-02-02] MEDS: Ketorolac 30 MG/ML VIAL IVP (01:07)
[2019-02-02 07:15] LABS: Abs Immature Grans 0.11 k/cumm (0.0-0.09); Basophils % 0.1; HCT 38.1 % (36.0-46.0); HGB 12.4 g/dL (12.0-15.5); Immature Grans % 0.4; Lymphocytes % 7.1; Mean Corp. HGB Concentration 32.5 g/dL (32.0-36.0); Mean Corpuscular Volume 82.8 fL (80-95); Mean Platelet Volume 10.5 fL (8.0-11.0); Monocytes % 7.1; Neutrophils % 85.3; Platelet Count 311 x1000/uL (130-400); RBC Distribution Width 14.1 % (11.7-14.6)
[2019-02-02 07:20] LABS: Anion Gap 8.8 mmol/L (3-11); BUN 14 mg/dL (7-18); CO2 26.2 mmol/L (21.0-32.0); CREATININE 1.23 mg/dL (0.55-1.02); Calcium 8.7 mg/dL (8.5-10.1); Chloride 105 mmol/L (98-107); Estimated GFR 47.88 (mL/min/1.73m2); Glucose 157 mg/dL (70-100); Magnesium 1.8 mg/dL (1.8-2.4); Potassium 3.4 mmol/L (3.5-5.1); Sodium 140 mmol/L (136-145)
[2019-02-02 07:27] LABS: Absolute Basophil Count 0.03 k/cumm (0.0-0.2); Absolute Lymphocyte Count 1.95 k/cumm (1.2-3.4); Absolute Monocyte Count 1.95 k/cumm (0.11-0.7)
[2019-02-02 07:45] LABS: White Blood Cell Count 27.43 k/cumm (4.4-10.8)
[2019-02-02 07:58] LABS: Diff Comment Diff Reviewed
--- NOTE | 2019-02-02 08:00 | MERGE_ITS ---
*[facility]* *[facility]* [address] [place] [address] Date of study: 02/02/2019 Transthoracic Echocardiography M-mode, complete 2D, complete spectral Doppler, and color Doppler *STUDY CONCLUSIONS* Summary: 1. Left ventricle: The cavity size was normal. Wall thickness was increased in a pattern of severe LVH. Systolic function was normal. The estimated ejection fraction was 60-65%. Findings consistent with diastolic dysfunction. Doppler parameters are consistent with high ventricular filling pressure. 2. Aortic valve: Trileaflet. 3. Aortic root: The aortic root was mildly dilated. 4. Ascending aorta: The ascending aorta was moderately dilated. 5. Mitral valve: There was moderate regurgitation. 6. Left atrium: The atrium was mildly dilated. 7. Right ventricle: The cavity size was normal. Wall thickness was normal. Systolic function was normal. 8. Atrial septum: No defect or patent foramen ovale was identified. 9. Pulmonary arteries: Pulmonary systolic pressure was in the range of 20mm Hg to 30mm Hg. 10. Inferior vena cava: The vessel was patent and normal in size. The respirophasic diameter changes were in the normal range (greater than or equal to 50%), consistent with normal central venous pressure. *PATIENT PRESENTATION* Height: 170.2cm ((67in) ) S/D Pressure: 132 / 74 Weight: 114.3kg ((251.5lb) ) BSA: 2.38m^2 Test start time: 07:40 AM. Test stop time: 08:30 AM. 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 This study was interpreted by [facility]. Pertinent images and digital data are archived for permanent storage and are available for subsequent review. No prior study was available for comparison. Study status: Routine. Transthoracic echocardiography. M-mode, complete 2D, complete spectral Doppler, and color Doppler. A Transthoracic Echocardiogram was performed. Scanning was performed from the parasternal, apical, subcostal, and suprasternal notch acoustic windows. Images were obtained using an [id number] cardiac ultrasound machine. Image quality was adequate. Study completion: The patient tolerated the procedure well. History: PMH: Syncope. *CARDIAC ANATOMY* Left ventricle: The cavity size was normal. Wall thickness was increased in a pattern of severe LVH. Systolic function was normal. The estimated ejection fraction was 60-65%. The tissue Doppler parameters were abnormal. Findings consistent with diastolic dysfunction. Doppler parameters are consistent with high ventricular filling pressure. Aortic valve: Trileaflet. Doppler: There was no stenosis. There was no regurgitation. VTI ratio of LVOT to aortic valve: 0.69. Valve area (VTI): 2.5cm^2. Indexed valve area (VTI): 1.1cm^2/m^2. Peak velocity ratio of LVOT to aortic valve: 0.72. Valve area (Vmax): 2.6cm^2. Indexed valve area (Vmax): 1.1cm^2/m^2. Mean velocity ratio of LVOT to aortic valve: 0.77. Valve area (Vmean): 2.8cm^2. Indexed valve area (Vmean): 1.2cm^2/m^2. Mean gradient (S): 6.6mm Hg. Peak gradient (S): 10.3mm Hg. Aorta: Aortic root: The aortic root was mildly dilated. Ascending aorta: The ascending aorta was moderately dilated. Mitral valve: Doppler: There was no evidence for stenosis. There was moderate regurgitation. Valve area by pressure half-time: 4.1cm^2. Indexed valve area by pressure half-time: 1.7cm^2/m^2. Peak gradient (D): 4.1mm Hg. Left atrium: The atrium was mildly dilated. Atrial septum: No defect or patent foramen ovale was identified. Right ventricle: The cavity size was normal. Wall thickness was normal. Systolic function was normal. Pulmonic valve: Doppler: There was no evidence for stenosis. There was no significant regurgitation. Peak gradient (S): 5.6mm Hg. Tricuspid valve: Doppler: There was mild regurgitation. Pulmonary artery: Poorly visualized. Pulmonary systolic pressure was in the range of 20mm Hg to 30mm Hg. Right atrium: The atrium was normal in size. Pericardium: There was no pericardial effusion. Systemic veins: Inferior vena cava: Well visualized. The vessel was patent and normal in size. The respirophasic diameter changes were in the normal range (greater than or equal to 50%), consistent with normal central venous pressure. Baseline ECG: Normal sinus rhythm. Measurements Left ventricle Value Reference LV ID, ED, PLAX 5.3 cm 3.5 - 6.0 LV ID, ES, PLAX 3.8 cm 2.1 - 4.0 LV PW thickness, ED, PLAX 1.6 cm LV end-diastolic volume, 1-p A2C 100 ml LV ejection fraction, 1-p A2C 53 % LV end-diastolic volume, 1-p A4C 114 ml LV ejection fraction, 1-p A4C 56 % LV e', lateral 0.056 m/sec LV E/e', lateral 18 LV e', medial 0.064 m/sec LV E/e', medial 16 LV e', average 0.06 m/sec LV E/e', average 17 Ventricular septum Value Reference IVS thickness, ED, PLAX 1.6 cm LVOT Value Reference LVOT ID, A-P 2.2 cm LVOT area 3.6 cm^2 LVOT peak velocity, S 1.16 m/sec LVOT mean velocity, S 0.94 m/sec LVOT VTI, S 20.1 cm LVOT peak gradient, S 5.4 mm Hg LVOT mean gradient, S 3.7 mm Hg Stroke volume (SV), LVOT DP 73 ml Stroke index (SV/bsa), LVOT DP 31 ml/m^2 Aortic valve Value Reference Aortic valve peak velocity, S 1.6 m/sec Aortic valve mean velocity, S 1.23 m/sec Aortic valve VTI, S 29.0 cm Aortic mean gradient, S 6.6 mm Hg Aortic peak gradient, S 10.3 mm Hg VTI ratio, LVOT/AV 0.69 Aortic valve area, VTI 2.5 cm^2 Velocity ratio, peak, LVOT/AV 0.72 Aortic valve area, peak velocity 2.6 cm^2 Velocity ratio, mean, LVOT/AV 0.77 Aortic valve area, mean velocity 2.8 cm^2 Aortic valve area/bsa, mean velocity 1.2 cm^2/m^2 Aorta Value Reference Aortic root ID, ED 3.9 cm Ascending aorta ID, A-P, S 4.0 cm Left atrium Value Reference LA ID, A-P, ES 4.3 cm LA ID/bsa, A-P 1.8 cm/m^2 <=2.2 LA area, ES, A4C 22.7 cm^2 8.8 - 23.4 LA area, ES, A2C 22 cm^2 LA volume/bsa, ES, 1-p A4C 38 ml/m^2 LA volume, ES, 2-p 76 ml LA volume/bsa, ES, 2-p 32 ml/m^2 LA/aortic root ratio 1.12 Mitral valve Value Reference Mitral E-wave peak velocity 1.02 m/sec Mitral A-wave peak velocity 0.88 m/sec Mitral deceleration time 186 ms 150 - 230 Mitral pressure half-time 54 ms Mitral peak gradient, D 4.1 mm Hg Mitral E/A ratio, peak 1.16 Mitral valve area, PHT, DP 4.1 cm^2 Pulmonary veins Value Reference Pulmonary vein peak velocity, S 0.68 m/sec Pulmonary vein peak velocity, D 0.81 m/sec Pulmonary vein velocity ratio, peak, 0.84 S/D Pulmonary vein A-wave reversal peak 0.36 m/sec velocity Pulmonary vein A-wave reversal 144 ms duration Tricuspid valve Value Reference Tricuspid regurg peak velocity 2.5 m/sec Tricuspid peak RV-RA gradient 24.9 mm Hg Right atrium Value Reference RA area, ES, A4C 17.4 cm^2 8.3 - 19.5 Pulmonic valve Value Reference Pulmonic peak gradient, S 5.6 mm Hg Legend: (L) and (H) anisa values outside specified reference range. I have personally reviewed the images and have reviewed and edited the reported findings. Electronically signed by Cesar Krishnamurthy MD 02/02/2019 10:32
--- NOTE | 2019-02-02 08:00 | DI.US_ITS ---
SYMPTOMS/DIAGNOSIS: SYNCOPE BILATERAL DUPLEX CAROTID ULTRASOUND: Duplex evaluation of the carotid circulation was performed according to the usual protocol. Note is made of bilateral antegrade vertebral flow. There is little if any visible atheromatous plaque in the carotid circulation. Note is made of flow velocity elevation in the distal internal carotid artery to 130 cm/s consistent with 50-60% luminal diameter stenosis. No flow velocity elevation identified elsewhere in common or internal carotic arteries. CONCLUSION: Findings consistent with 50-60% luminal diameter stenosis, left internal carotid artery.
--- NOTE | 2019-02-02 08:42 | DI.RAD_ITS ---
SYMPTOM/DIAGNOSIS: F/U POSSIBLE INFILTRATE, S/P VOMITING PORTABLE AP CHEST at 0845 hours: The heart is enlarged. There is normal appearance of the lungs. No pleural effusion is seen. CONCLUSION: Cardiomegaly. No evidence of acute process.
[2019-02-02] MEDS: Normal Saline 1,000 ML 50 ML IV (09:28)
[2019-02-02] MEDS: amLODIPine 5 MG TAB 10 MG PO (09:28)
[2019-02-02] MEDS: Potassium Chloride 20 MEQ TABCR 40 MEQ PO (09:28)
--- NOTE | 2019-02-02 10:08 | PDOC.CMIN ---
- If Service Date Differs Date of service: 02/02/19 Time of Service: 10:08 Care Management Initial Assess REASON FOR HOSPITALIZATION:: Syncope. Hypertensive urgency PAST MEDICAL HISTORY/PAST SURGICAL HISTORY:: Medical History: Enlarged heart, Migraines, Obesity (BMI 30-39.9), Snoring, Uncontrolled hypertension, Hypertensive emergency (Resolved). Surgical History: Hx of cholecystectomy, PREVIOUS FUNCTIONAL STATUS/SOCIAL/FAMILY SUPPORTS:: Bailee lives alone in a third floor apartment in [facility]. She works as a stitcher in a small business. 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 For support she has a son who lives in [place] and many family members who live in the [facility]. CURRENT FUNCTIONAL STATUS:: Bailee was sitting up in bed visiting with her son, daughter in law and granddaughter during CM visit. She described the incident that brought her to the hospital and stated emphatically that this was a wake up call and that she intends to take better care of herself. She informed CM that she has no insurance since her employer does not offer that benefit and that she has been unable to obtain insurance through the [facility] because she makes too much money.She states that her plan is to begin looking for a job that offers insurance as soon as she returns to [place].She also said she has asked to prescribe medications for her blood pressure that are on [facility]'s $4 list. ADVANCE DIRECTIVES:: None on file. CM will investigate resources for this in [place]. Has patient been provided with information about the portal?: No Did the patient sign up for the portal?: No CODE STATUS:: Full Code INSURANCE COVERAGE / FINANCIAL ISSUES:: BC/MELVIN CURRENT HOME/COMMUNITY SERVICES/EQUIPMENT:: None at this time PRIMARY CARE PHYSICIAN:: None POTENTIAL DISCHARGE NEEDS:: Follow up plan of care and affordable medications. PATIENT/FAMILY EDUCATION NEEDS:: Discharge plan, limitations, follow up plan of care, Ask Me Three. ANTICIPATED BARRIERS TO DISCHARGE:: Ability to afford mediactions critical to her health and wellness. TRANSPORTATION:: Via private automobile with family when ready. PLAN:: Bailee is in the ICU receiving IV antihypertensive medications to control her blood pressure. She will be discharged home when ready. CM to provide support to patient, family, care givers and discharge plan of care.
--- NOTE | 2019-02-02 10:25 | INITIAL_ITS ---
- If Service Date Differs Date of service: 02/02/19 Time of Service: 10:08 Care Management Initial Assess REASON FOR HOSPITALIZATION:: Syncope. Hypertensive urgency PAST MEDICAL HISTORY/PAST SURGICAL HISTORY:: Medical History: Enlarged heart, Migraines, Obesity (BMI 30-39.9), Snoring, Uncontrolled hypertension, Hypertensive emergency (Resolved). Surgical History: Hx of cholecystectomy, PREVIOUS FUNCTIONAL STATUS/SOCIAL/FAMILY SUPPORTS:: Bailee lives alone in a third floor apartment in [facility]. She works as a stitcher in a small business. 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 For support she has a son who lives in [place] and many family members who live in the [facility]. CURRENT FUNCTIONAL STATUS:: Bailee was sitting up in bed visiting with her son, daughter in law and granddaughter during CM visit. She described the incident that brought her to the hospital and stated emphatically that this was a wake up call and that she intends to take better care of herself. She informed CM that she has no insurance since her employer does not offer that benefit and that she has been unable to obtain insurance through the [facility] because she makes too much money.She states that her plan is to begin looking for a job that offers insurance as soon as she returns to [place].She also said she has asked to prescribe medications for her blood pressure that are on [facility]'s $4 list. ADVANCE DIRECTIVES:: None on file. CM will investigate resources for this in [place]. Has patient been provided with information about the portal?: No Did the patient sign up for the portal?: No CODE STATUS:: Full Code INSURANCE COVERAGE / FINANCIAL ISSUES:: BC/MELVIN CURRENT HOME/COMMUNITY SERVICES/EQUIPMENT:: None at this time PRIMARY CARE PHYSICIAN:: None POTENTIAL DISCHARGE NEEDS:: Follow up plan of care and affordable medications. PATIENT/FAMILY EDUCATION NEEDS:: Discharge plan, limitations, follow up plan of care, Ask Me Three. ANTICIPATED BARRIERS TO DISCHARGE:: Ability to afford mediactions critical to her health and wellness. TRANSPORTATION:: Via private automobile with family when ready. PLAN:: Bailee is in the ICU receiving IV antihypertensive medications to control her blood pressure. She will be discharged home when ready. CM to provide support to patient, family, care givers and discharge plan of care.
--- NOTE | 2019-02-02 11:00 | MERGEMPI_ITS ---
*[facility]* *[facility]* [address] [place] [address] Myocardial Perfusion Imaging - SPECT Regadenoson Date of study: 02/02/2019 *PATIENT PRESENTATION* Height: 170.2cm (67in) Blood Pressure: Weight: 113.6kg (250lb) BSA: 2.37m^2 Referring physician: Marzena Fernandez Ordering physician: Marzena Fernandez Impressions: Abnormal study after pharmacologic stress. Summary: 1. Myocardial perfusion imaging: There is a moderate sized, moderately intense, partially reversible defect involving the anterior and anterolateral wall(s). This suggests moderate ischemia in the distribution of the left anterior descending coronary artery. Overall ischemia: moderate. 2. The calculated left ventricular ejection fraction after stress: 42%. There is moderate hypokinesis involving the lateral wall(s) of the left ventricle. Indication: R94.31. History: Patient's presenting symptoms: asymptomatic. REASON FOR VISIT: PATIENT ADMITTED AFTER WITNESSED SYNCOPAL EPISODE. PATIENT WOKE UP WITH HEADACHE YESTERDAY, BECAME NAUSEOUS, AND THEN HAD SYNCOPAL EPISODE. PATIENT DENIES DIZZINESS OR CHEST PAIN AT TIME OF EPISODE. TROPONINS NOTED TO BE ELEVATED IN ER (MAX 0.12, TRENDING DOWN) AND EKG REVEALED T WAVE INVERSIONS IN LEADS V4-V6. NO PREVIOUS EKG AVAILABLE FOR COMPARISON. PATIENT ON LABETELOL INJUSION EARLY THIS MORNING, CURRENTLY OFF. PAST MEDICAL HISTORY: ENLARGED HEART, MIGRAINES, HYPERTENSION, OBESITY. FAMILY HISTORY: MOTHER (HYPERTENSION). FATHER (HYPERTENSION). SMOKING STATUS: 5 CIGARETTES/DAY. 25 YEAR SMOKING HISTORY. EXERCISE ROUTINE: NONE. Risk factors: Family history of coronary artery disease. Current tobacco use. Hypertension. Obesity. ALLERGIES: NO KNOWN ALLERGIES. MEDICATIONS: NONE. Imaging Technique: Protocol: Regadenoson. Acquisition: Gated SPECT; 1 day - rest/stress. The patient was imaged in the supine position. Attenuation correction used. Isotope administration: - Rest. Tc[99m]-sestamibi. Dose: 9mCi. Injection time: 11:40 AM. Injection to stress time: 00:45. - Stress. Tc[99m]-sestamibi. Dose: 29mCi. Injection time: 01:00 PM. 1-2 min before end of exercise Baseline ECG: SINUS RHYTHM. ST SEGMENT ELEVATION IN LEADS V1 AND V2. T WAVE INVERSION IN LEADS AVL, V5, AND V6. HEART RATE 77 BPM. Stress protocol: +--------+---+ + + + !Stage !HR !BP (mmHg) !Symptoms !Comments ! +--------+---+ + + + !Baseline!77 !164/98 (120) ! ! ! +--------+---+ + + + !1 min !108!180/100 (127)!Dyspnea !Inject Regadenoson. ! +--------+---+ + + + !2 min !---! !Resolved, dizziness, ! ! ! ! ! !nausea ! ! +--------+---+ + + + !3 min !104!190/104 (133)! ! ! +--------+---+ + + + !5 min !---! !5 out of 10 chest ! ! ! ! ! !discomfort ! ! +--------+---+ + + + !6 min !101!194/110 (138)! ! ! +--------+---+ + + + !7 min !---! !7 out of 10 chest ! ! ! ! ! !discomfort, headache ! ! +--------+---+ + + + !9 min !98 !182/100 (127)!7 out of 10 chest ! ! ! ! ! !discomfort ! ! +--------+---+ + + + !10 min !92 !180/98 (125) !7 out of 10 chest ! ! ! ! ! !discomfort ! ! +--------+---+ + + + !--------!92 !186/98 (127) !Resolved !50 mg aminophylline ! ! ! ! ! !IVP given at 12 ! ! ! ! ! !minutes post ! ! ! ! ! !regadenoson ! ! ! ! ! !injection. Chest pain! ! ! ! ! !resolved post ! ! ! ! ! !aminophylline ! ! ! ! ! !injection. ! +--------+---+ + + + * Stress results: The rate-pressure product for the peak heart rate and blood pressure was 51921gh Hg/min. Stress ECG: MPI STRESS TEST ENDED IN 14MIN 45 SEC WHEN SYMPTOMS OF REGADENOSON INJECTION HAD SUBSIDED. HYPERTENSIVE AT BASELINE. APPROPRIATE HEART RATE AND BLOOD PRESSURE RESPONSE TO REGADENOSON INJECTION. PATIENT INITIALLY C/O DYSPNEA POST REGADENOSON INJECTION, WHICH SUBSIDED WITHIN ONE MINUTE. AT TWO MINUTE POST INJECTION PATIENT C/O DIZZINESS AND NAUSEA. AT MINUTE FIVE PATIENT C/O 5/10 DIFFUSE ACHEY CHEST PAIN. AT MINUTE SEVEN CHEST PAIN INCREASED TO 7/10 WITH HEADACHE, NAUSEA AND DIZZINESS HAD RESOLVED. 7/10 ACHEY CHEST PAIN CONTINUED UNTIL 50MG AMINOPHYLLINE IVP GIVEN AT MINUTE TWELVE. CHEST PAIN RESOLVED POST AMINOPHYLLINE INJECTION. NO ECTOPY NOTED. NO SIGNIFICANT ST SEGMENT CHANGES NOTED FROM BASELINE. Myocardial perfusion: Imaging information: gated. There is a moderate sized, moderately intense, partially reversible defect involving the anterior and anterolateral wall(s). This suggests moderate ischemia in the distribution of the left anterior descending coronary artery. Overall ischemia: moderate. Ventricular Function (Wall Motion): The calculated left ventricular ejection fraction after stress: 42%. There is moderate hypokinesis involving the lateral wall(s) of the left ventricle. Study data: Cesar Krishnamurthy MD supervised and was readily available during the procedure. This study was interpreted by [facility]. Study status: Routine. Consent: The risks, benefits, and alternatives to the procedure were explained to the patient and informed consent was obtained. Procedure: Initial setup. A baseline ECG was recorded. Surface ECG leads and manual cuff blood pressure measurements were monitored. Heart sounds: Normal. Lung sounds: Normal. Regadenoson stress test. Stress testing was performed, with regadenoson by intravenous bolus, for a total dose of 0.4mgover 10.00sec, followed by a 5ml saline flush. The infusion was terminated due to per protocol. The patient was unable to exercise due to recent labetolol administration.. Study completion: All catheters inserted during the procedure were removed. The patient tolerated the procedure well and was discharged from the lab. Discharge: The patient left the laboratory in stable condition. Birthdate: Patient birthdate: 1975. Sex: Gender: female. Study date: Study date: 02/02/2019. Study time: 00:01 AM. Electronically signed by Cesar Krishnamurthy MD 02/02/2019 18:38
--- NOTE | 2019-02-02 12:22 | PGE_ITS ---
Date of Service Date of service: 02/02/19 Time of Service: 11:15 Assessment and Plan (1) Syncope: Current visit: Yes Status: Acute Likely vasovagal. No structural abnormality on echo to explain syncope. She is undergoing a stress test today. No arrhythmias on tele. US carotid is pending. (2) Hypertensive urgency: Current visit: Yes Status: Acute Vs emergency, with evidence of at least mild encephalopathy, as well as elevated troponin and EKG changes. Now resolved. Continue to monitor in the ICU for the rest of the day - may be able to transfer to [facility] with tele. Aldasterone/renin levels are pending. She seems to have responded to amlodipine and metoprolol combination. (3) Elevated troponin: Current visit: Yes Status: Acute No ACS. Likely due to hypertensive emergency. Obtaining MPI today. (4) Enlarged heart: Current visit: Yes Status: Acute Echo with severe LVH, diastolic dysfunction. BP control is imperative. (5) Ground glass opacity present on imaging of lung: Current visit: Yes Status: Acute CXR is negative. No fever. No cough. Leucocytosis today is likely due to steroids used in the ED yesterday. I feel this is likely due to her chronic lung disease (smoker). No evidence of antibiotics at this time. Follow up as outpatient. (6) Leucocytosis: Current visit: Yes Status: Acute as above (7) Headache: Current visit: Yes Status: Resolved In setting of hypertensive emergency, responded to migraine therapy. Additionally, this could have been due to untreated suspected sleep apnea/hypoxia overnight or a tension headache or a symptom of untreated hypertension. This will have to be followed up as outpatient. (8) Tobacco abuse: Current visit: Yes Status: Acute Advised to quit. Provide nicotine patch (9) Snoring: Current visit: Yes Status: Chronic I have a strong suspicion that this is due to obstructive sleep apnea, which hasn't been properly worked up yet. Recommend sleep study as outpatient. (10) Discharge planning issues: Current visit: Yes Status: Acute Full code. The patient does not have medical insurance and states she cannot afford her medications. She is from [place]. Likely discharge home tomorrow if BP remains controlled. (11) DVT prophylaxis: Current visit: Yes Status: Acute Lovenox + SCDs + TEDs Subjective Interval history since last seen: Ms Jarrett had to be transferred to the ICU overnight because of uncontrolled BP. She required a labetalol gtt. She is now off of the drip with SBPs in 130s - 150s. Describes having musculoskeletal midchest pain last night, improved with toradol which hasn't returned. Denies dizziness, chest pain, shortness of breath, headache, or nausea today. Exam Narrative Exam Narrative: General: Very pleasant obese female, sitting up in bed, NAD, A&Ox3 HEENT: Normocephalic, EOMI, MMM, Cardiovascular: RRR, no m/r/g Lungs: CTAB Gastrointestinal: abdomen is soft, nontender, nondistended Extremities: 2+ pedal pulses B, no e/c/c BLE's Objective Objective Clinical Data: Abnormal lab results 02/01/19 02/02/19 02/02/19 Range/Units 18:00 00:30 06:50 WBC (4.4-10.8) k/cumm Absolute Neutrophils (1.2-6.7) k/cumm Absolute Monocytes (0.11-0.7) k/cumm Potassium 3.4 L (3.5-5.1) mmol/L Creatinine 1.23 H (0.55-1.02) mg/dL Glucose 157 H (70-100) mg/dL Troponin I 0.12 H* 0.10 H* (0.00-0.06) ng/mL 02/02/19 Range/Units 06:50 WBC 27.43 H* D (4.4-10.8) k/cumm Absolute Neutrophils 23.40 H (1.2-6.7) k/cumm Absolute Monocytes 1.95 H (0.11-0.7) k/cumm Potassium (3.5-5.1) mmol/L Creatinine (0.55-1.02) mg/dL Glucose (70-100) mg/dL Troponin I (0.00-0.06) ng/mL Vital Signs Temperature 36.3 C L 02/02/19 07:45 Temperature Source Temporal Artery Scan 02/02/19 07:45 Pulse 80 02/02/19 07:01 Pulse Rhythm Regular 02/01/19 15:35 Pulse 75 02/02/19 07:30 Respiratory Rate 17 02/02/19 07:30 Respiratory Effort Non-Labored 02/02/19 07:45 Respiratory Depth Normal 02/02/19 07:45 Respiratory Pattern Normal 02/02/19 07:45 Blood Pressure 134/73 02/02/19 07:01 Blood Pressure Mean 85 02/02/19 07:01 Blood Pressure Position Supine 02/02/19 03:00 Pulse Oximetry 97 02/02/19 07:01 Oxygen Delivery Method Room Air 02/02/19 03:00 Oxygen Flow Rate 0 02/02/19 03:00 Pain Level 0 02/02/19 07:45 Comment 02/01/19 21:53 Intake & Output 02/01/19 02/02/19 02/02/19 23:59 11:59 23:59 Intake Total 1520 / 1520 1412 / 1412 Output Total 425 / 425 Balance 1520 / 1520 987 / 987 Weight 114.4 kg 115.3 kg Intake: IV 1040 / 1040 1162 / 1162 Oral 480 / 480 250 / 250 Output: Urine 425 / 425 Other: Urine Appearance Clear Clear Urine Odor Normal Voiding Methods Toilet Toilet Bedside Commode Laboratory Results WBC 27.43 k/cumm (4.4-10.8) H* D 02/02/19 06:50 RBC 4.60 m/cumm (4.00-5.20) 02/02/19 06:50 Hgb 12.4 g/dL (12.0-15.5) 02/02/19 06:50 Hct 38.1 % (36.0-46.0) 02/02/19 06:50 MCV 82.8 fL (80-95) 02/02/19 06:50 MCH 27.0 pg (27.0-33.0) 02/02/19 06:50 MCHC 32.5 g/dL (32.0-36.0) 02/02/19 06:50 RDW 14.1 % (11.7-14.6) 02/02/19 06:50 Plt Count 311 x1000/uL (130-400) 02/02/19 06:50 MPV 10.5 fL (8.0-11.0) 02/02/19 06:50 Immature Gran % 0.4 02/02/19 06:50 Neutrophils % 85.3 02/02/19 06:50 Lymphocytes % 7.1 02/02/19 06:50 Monocytes % 7.1 02/02/19 06:50 Eosinophils % 0.0 02/02/19 06:50 Basophils % 0.1 02/02/19 06:50 Absolute Neutrophils 23.40 k/cumm (1.2-6.7) H 02/02/19 06:50 Absolute Lymphocytes 1.95 k/cumm (1.2-3.4) 02/02/19 06:50 Absolute Monocytes 1.95 k/cumm (0.11-0.7) H 02/02/19 06:50 Absolute Eosinophils 0.00 k/cumm (0.0-0.7) 02/02/19 06:50 Absolute Basophils 0.03 k/cumm (0.0-0.2) 02/02/19 06:50 Differential Comment Diff reviewed 02/02/19 06:50 D-Dimer 366 ng/mlFEU (<500) 02/01/19 10:40 Sodium 140 mmol/L (136-145) 02/02/19 06:50 Potassium 3.4 mmol/L (3.5-5.1) L 02/02/19 06:50 Chloride 105 mmol/L (98-107) 02/02/19 06:50 Carbon Dioxide 26.2 mmol/L (21.0-32.0) 02/02/19 06:50 Anion Gap 8.8 mmol/L (3-11) 02/02/19 06:50 BUN 14 mg/dL (7-18) 02/02/19 06:50 Creatinine 1.23 mg/dL (0.55-1.02) H 02/02/19 06:50 Estimated GFR/1.73 m2 47.88 (mL/min/1.73m2) 02/02/19 06:50 Glucose 157 mg/dL (70-100) H 02/02/19 06:50 Hemoglobin A1c 5.7 % (4.5-6.2) 02/01/19 18:00 Calcium 8.7 mg/dL (8.5-10.1) 02/02/19 06:50 Magnesium 1.8 mg/dL (1.8-2.4) 02/02/19 06:50 Total Bilirubin 0.4 mg/dL (0.2-1.0) 02/01/19 10:40 AST 15 U/L (15-37) 02/01/19 10:40 ALT 41 U/L (12-78) 02/01/19 10:40 Alkaline Phosphatase 82 U/L (46-116) 02/01/19 10:40 Troponin I 0.10 ng/mL (0.00-0.06) H* 02/02/19 00:30 NT-Pro-B Natriuret Pep 707 pg/mL (-299) H 02/01/19 10:40 Total Protein 8.3 g/dL (6.4-8.2) H 02/01/19 10:40 Albumin 3.5 g/dL (3.4-5.0) 02/01/19 10:40 TSH 3.15 uIU/mL (0.358-3.74) 02/01/19 10:40 Echo: 1. Left ventricle: The cavity size was normal. Wall thickness was increased in a pattern of severe LVH. Systolic function was normal. The estimated ejection fraction was 60-65%. Findings consistent with diastolic dysfunction. Doppler parameters are consistent with high ventricular filling pressure. 2. Aortic valve: Trileaflet. 3. Aortic root: The aortic root was mildly dilated. 4. Ascending aorta: The ascending aorta was moderately dilated. 5. Mitral valve: There was moderate regurgitation. 6. Left atrium: The atrium was mildly dilated. 7. Right ventricle: The cavity size was normal. Wall thickness was normal. Systolic function was normal. 8. Atrial septum: No defect or patent foramen ovale was identified. 9. Pulmonary arteries: Pulmonary systolic pressure was in the range of 20mm Hg to 30mm Hg. 10. Inferior vena cava: The vessel was patent and normal in size. The respirophasic diameter changes were in the normal range (greater than or equal to 50%), consistent with normal central venous pressure. CXR: Cardiomegaly. No evidence of acute process.
[2019-02-02] MEDS: Aminophylline 500 MG/20 ML VIAL IVP (13:35)
[2019-02-02] MEDS: Regadenoson 0.4 MG/5 ML SYR IVP (13:36)
[2019-02-02] MEDS: Acetaminophen 325 MG TAB PO (14:32)
[2019-02-02] MEDS: Metoprolol CR 50 MG TABCR PO (14:33)
[2019-02-02] MEDS: Valsartan 80 MG TAB PO ×2 (14:46→19:55)
[2019-02-02] MEDS: Enoxaparin 40 MG/0.4 ML SYR SC (15:24)
--- NOTE | 2019-02-02 16:55 | PHARADMIT ---
Admission Pharmacy Clinical Review hypertensive urgency,syncope,elevated troponin Code Status Full Code Current Weight Wgt- 115.3 kg Renally Cleared and Narrow Therapeutic Index Meds CrCl~ 57.9 mL/min Meds-OK QTc Value / Action Taken QTc-469 na BP Control, Fever BP- 182/111 Tmax- 36.8C Electrolytes reviewed Na- 140 K+3.4 Mag-1.8 DVT Prophylaxis Lovenox Opiate Usage / Scheduled Bowel Regimen Ordered No Yes Plt/SCr for Heparin / Enoxaparin Plts-311 SCr-1.23 INR for Warfarin na H/H stable, WBC/Bands H&H- 12.4/38.1 WBC- 27.23 Antibiotic appropriateness none Cultures and Sensitivities none Surgical ABX d/c within 24 hr NA DM control / Insulin Dosing BG-157 NhI1O-0.7% Heart Failure (Check EF%) (EDDIE's, B-Block, Diuretics) NORVASC, VALSARTAN, Lopressor po & IV prn IV to PO Switch No Home Meds Reviewed Yes Home Meds Not Ordered No known meds Comments Tropinin- 0.11 ^ 0.12 ^ 0.10
[2019-02-02] MEDS: Clopidogrel 300 MG TAB PO (18:56)
[2019-02-02] MEDS: Aspirin 81 MG CHEW CH (18:56)
[2019-02-02] MEDS: Metoprolol 50 MG TAB PO (19:55)
[2019-02-03] VITALS (24 sets, daily range): BP systolic 134–173; BP diastolic 77–105; PULSE 65–89; RESP 10–23; TEMP 36–37.3; O2SAT 92–98
[2019-02-03 07:03] LABS: Abs Immature Grans 0.05 k/cumm (0.0-0.09); Absolute Basophil Count 0.03 k/cumm (0.0-0.2); Absolute Eosinophil Count 0.11 k/cumm (0.0-0.7); Absolute Lymphocyte Count 3.38 k/cumm (1.2-3.4); Absolute Monocyte Count 1.26 k/cumm (0.11-0.7); Basophils % 0.2; Eosinophils % 0.7; HCT 38.3 % (36.0-46.0); HGB 12.1 g/dL (12.0-15.5); Immature Grans % 0.3; Lymphocytes % 20.7; Mean Corp. HGB Concentration 31.6 g/dL (32.0-36.0); Mean Corpuscular Hemoglobin 26.7 pg (27.0-33.0); Mean Corpuscular Volume 84.4 fL (80-95); Mean Platelet Volume 10.4 fL (8.0-11.0); Monocytes % 7.7; Neutrophils % 70.4; Platelet Count 243 x1000/uL (130-400); RBC 4.54 m/cumm (4.00-5.20); RBC Distribution Width 14.5 % (11.7-14.6); White Blood Cell Count 16.33 k/cumm (4.4-10.8)
[2019-02-03 07:19] LABS: Anion Gap 10.2 mmol/L (3-11); BUN 17 mg/dL (7-18); CO2 23.8 mmol/L (21.0-32.0); CREATININE 0.89 mg/dL (0.55-1.02); Calcium 8.1 mg/dL (8.5-10.1); Chloride 107 mmol/L (98-107); Cholesterol 113 mg/dL (50-200); Glucose 96 mg/dL (70-100); HDL Cholesterol 32 mg/dL (40-60); LDL CHOLESTEROL 61 mg/dL (<100); Magnesium 1.9 mg/dL (1.8-2.4); Potassium 3.7 mmol/L (3.5-5.1); Sodium 141 mmol/L (136-145); Triglyceride 124 mg/dL (30-150)
[2019-02-03 07:35] LABS: Bilirubin Negative (Negative); Blood Large (Negative); Clarity Sl Cloudy; Glucose Negative (Negative); Ketones Negative (Negative); Leukocyte Esterase Trace (Negative); Nitrite Negative (Negative); Specific Gravity >= 1.030 (1.005-1.025); Urobilinogen 0.2 EU/dL (Up TO 0.2)
[2019-02-03 07:42] LABS: *AMPHETAMINES SCREEN URINE Negative (Negative); *BARBITURATES SCREEN URINE Negative (Negative); *BENZODIAZEPINES SCREEN URINE Negative (Negative); Cannabinoids THC Negative (Negative); Cocaine Screen,Urine Negative (Negative); METHADONE URINE SCREEN Negative (Negative); OPIATES URINE SCREEN Negative (Negative)
[2019-02-03 07:43] LABS: Tricyclic Antidepressants Negative (Negative)
[2019-02-03 07:47] LABS: RBC >50 (0-2)
[2019-02-03 07:48] LABS: C & S Indicated? No
[2019-02-03] MEDS: Potassium Chloride 20 MEQ TABCR 40 MEQ PO (08:25)
[2019-02-03] MEDS: Aspirin 81 MG CHEW PO (08:26)
[2019-02-03] MEDS: Clopidogrel 75 MG TAB PO (08:26)
[2019-02-03] MEDS: amLODIPine 5 MG TAB 10 MG PO (08:26)
[2019-02-03] MEDS: Valsartan 80 MG TAB PO (08:26)
[2019-02-03] MEDS: Metoprolol 50 MG TAB PO (08:27)
[2019-02-03] MEDS: Normal Saline 1,000 ML 75 ML IV (10:31)
--- NOTE | 2019-02-03 10:46 | W.PM.DS.N ---
Date of service: 02/03/19 Time of Service: 10:46 DS: Diagnosis Discharge Diagnosis (1) Positive cardiac stress test: Status: Acute (2) Hypertensive emergency without congestive heart failure: Status: Resolved (3) Syncope: Status: Acute (4) Elevated troponin: Status: Acute (5) Enlarged heart: Status: Acute (6) Ground glass opacity present on imaging of lung: Status: Suspected Asessment and Plan: Questionable per CT of the chest; no evidence of acute infection - should have outpatient follow up. (7) Leucocytosis: Status: Acute Asessment and Plan: Due to steroids used in ED. No evidence of acute infection. (8) Headache: Status: Resolved Asessment and Plan: Part of hypertensive emergency/encephalopathy. (9) LVH (left ventricular hypertrophy) due to hypertensive disease: Status: Chronic (10) Snoring: Status: Chronic Asessment and Plan: Has never had a sleep study (11) Tobacco abuse: Status: Chronic (12) Pulmonary hypertension: Status: Chronic (13) Diastolic dysfunction: Status: Chronic (14) Moderate mitral regurgitation: Status: Acute (15) Obesity (BMI 30-39.9): Status: Acute (16) Stenosis of left carotid artery greater than 50%: Status: Acute Asessment and Plan: 50-60%, per carotid artery doppler 02/02/19 Discharge Plan Disposition Patient Disposition: [facility] Condition: Fair Discharge Details Chief Complaint: Dizzy/Sync Reason For Visit: HYPERTENSIVE URGENCY, SYNCOPE, ELEVATED TROPONIN Admit Date/Time: 02/01/19 13:43 Admit Provider: Marzena Fernandez Attending Provider: Marzena Fernandez Primary Care Provider: None,None ED Provider: Pineda Queen Hospital Course Hospital Course: Ms Jarrett is a 43 year old female with long standing history of severe uncontrolled hypertension, not on medical therapy due to lack of medical insurance/lack of primary care, as well as history of hypertensive heart disease, migraines, snoring, tobacco abuse, who was admitted to [facility] medical surgical floor on 02/01/19 and promptly transferred to the ICU due to a hypertensive emergency as well as a syncopal episode. The syncopal episode occurred earlier on the day of admission in setting of a severe headache and nausea. There was no chest pain preceding the admission. In the ED, EKG did demonstrate lateral T wave inversions, with no prior EKG to compare. The troponins were 0.11, 0.12, and 0.10 sequentially (cut off for normal at [facility] is 0.06). The patient was treated with IV and PO beta blockers, addition of amlodipine, re-institution of valsartan that she used to take some time ago. She was initiated on aspirin. She did require a labetalol infusion overnight between hospital day 1 and 2. There were no arrhythmias noted on personnel monitor. There was also an episode of chest pain that night, central, relieved with toradol. On hospital day 2, her BP's were much better controlled, so she was able to undergo a nuclear stress test as well as a transthoracic echocardiogram. The echo revealed severe LVH, LVEF of 60-65%, diastolic dysfunction, moderately dilated ascending aorta, moderate mitral regurgitation, pulmonary artery pressures in the range of 20-30 mm Hg. Nuclear stress test 02/02/19 was positive for a moderate reversible defect in anterior and anterolateral freedman (distribution of LAD), moderate hypokinesis of lateral freedman of the left ventricle, and EF of 42% after stress. The patient did have chest pain during the stress test and did also have a hypertensive response with BP's as high as 194/110. Per recommendation of cardiology, she was loaded with plavix 300 mg, and is now on plavix of 75 mg PO daily. She is now also prescribed a statin. The patient also underwent a carotid ultrasound, which reveals a left carotid artery stenosis of 50-60%, which she will have to follow up as outpatient. Per recommendation of cardiology (Dr Krishnamurthy), the patient should undergo urgent inpatient cardiac catheterization, which [facility] does not perform. The patient was accepted at [facility] by Dr Valle of Cardiology service at [facility]. The patient consents to transfer. It needs to be noted that case management with have to work with the patient on her insurance options and/or affordable medication options. We appreciate the assistance of [facility] cardiology service and wish the patient well! Time spent providing care and arranging transfer for the patient is 60 minutes. Home Meds and New Rx's Prescriptions: New acetaminophen [Tylenol] 325 mg Tablet 325 - 650 mg PO Q4H PRN PRNQty: 0 RF: 0 atorvastatin [Lipitor] 20 mg Tablet 20 mg PO QPM Qty: 0 RF: 0 clopidogrel [Plavix] 75 mg Tablet 75 mg PO DAILY Qty: 0 RF: 0 amlodipine 5 mg Tablet 10 mg PO DAILY Qty: 0 RF: 0 magnesium hydroxide [Milk of Magnesia] 400 mg/5 mL Suspension 30 ml PO DAILY PRN PRNQty: 0 RF: 0 metoprolol tartrate 50 mg Tablet 50 mg PO BID Qty: 0 RF: 0 docusate sodium [Colace] 100 mg Capsule 100 mg PO TID PRN PRNQty: 0 RF: 0 aspirin 81 mg Tablet,Chewable 81 mg PO DAILY Qty: 0 RF: 0 alum-mag hydroxide-simeth [Mag-Al Plus] 200-200-20 mg/5 mL Suspension 30 ml PO Q2H PRN PRNQty: 0 RF: 0 lorazepam 1 mg Tablet 1 mg PO TID PRN (Reason: Anxiety) Qty: 0 RF: 0 nicotine 7 mg/24 hr Patch 24 Hour 7 mg Transdermal DAILY PRN PRNQty: 0 RF: 0 metoprolol tartrate 5 mg/5 mL Solution 5 mg IVP Q6H PRN PRN (Reason: SBP>180; hold for HR<60) Qty: 0 RF: 0 valsartan [Diovan] 80 mg Tablet 80 mg PO BID Qty: 0 RF: 0 potassium chloride [Klor-Con M20] 20 mEq Tablet,Er Particles/Crystals 40 meq PO DAILY Qty: 0 RF: 0 Discharge Instructions Activity:: Out of bed to chair Equipment/Supplies:: No Equipment Needed Diet:: NPO Discharge Orders Discharge Orders: Discharge Order (Routine); Ordered 02/03/19 Ordered By: Marzena Fernandez Exam Narrative Exam Narrative: General: Very pleasant obese female, sitting up in bed, NAD, A&Ox3 HEENT: Normocephalic, EOMI, MMM, no JVD Cardiovascular: RRR, no m/r/g Lungs: CTAB Gastrointestinal: abdomen is soft, nontender, nondistended Extremities: trace pedal pulses B, no e/c/c BLE's DS: Data Vitals/I&O Vitals and I&O: Vital Signs Temperature 36.0 C L 02/03/19 03:50 Temperature Source Temporal Artery Scan 02/03/19 03:50 Pulse 78 02/03/19 06:01 Pulse Rhythm Regular 02/01/19 15:35 Pulse 69 02/03/19 06:01 Respiratory Rate 16 02/03/19 06:01 Respiratory Effort Non-Labored 02/03/19 03:50 Respiratory Depth Normal 02/03/19 03:50 Respiratory Pattern Normal 02/03/19 03:50 Blood Pressure 140/84 02/03/19 06:01 Blood Pressure Mean 99 02/03/19 06:01 Blood Pressure Position Sitting 02/03/19 03:50 Pulse Oximetry 98 02/03/19 05:01 Oxygen Delivery Method Room Air 02/03/19 03:50 Oxygen Flow Rate 0 02/03/19 03:50 Pain Level 0 02/03/19 03:50 Comment 02/01/19 21:53 Intake & Output 02/02/19 02/02/19 02/03/19 11:59 23:59 11:59 Intake Total 1412 / 2812 1400 / 2812 1120 / 1120 Output Total 425 / 425 Balance 987 / 2387 1400 / 2387 1120 / 1120 Weight 115.3 kg 115.7 kg Intake: IV 1162 / 1162 1000 / 1000 Oral 250 / 1650 1400 / 1650 120 / 120 Output: Urine 425 / 425 Other: Urine Appearance Clear Urine Odor Normal Comment Pt voided on MS Pt voided on MS BR. UA/UDS obtained in a clean catch by Pt Voiding Methods Toilet Bedside Commode Completed studies during hospitalization [Text1]: CT head w/o, CTA head/neck 02/01/19: Normal noncontrast Cranial CT. Negative CT angiography neck and head. CTA chest 02/01/19: No evidence of pulmonary embolic disease. Mild cardiomegaly. 2D echo 02/02/19: 1. Left ventricle: The cavity size was normal. Wall thickness was increased in a pattern of severe LVH. Systolic function was normal. The estimated ejection fraction was 60-65%. Findings consistent with diastolic dysfunction. Doppler parameters are consistent with high ventricular filling pressure. 2. Aortic valve: Trileaflet. 3. Aortic root: The aortic root was mildly dilated. 4. Ascending aorta: The ascending aorta was moderately dilated. 5. Mitral valve: There was moderate regurgitation. 6. Left atrium: The atrium was mildly dilated. 7. Right ventricle: The cavity size was normal. Wall thickness was normal. Systolic function was normal. 8. Atrial septum: No defect or patent foramen ovale was identified. 9. Pulmonary arteries: Pulmonary systolic pressure was in the range of 20mm Hg to 30mm Hg. 10. Inferior vena cava: The vessel was patent and normal in size. The respirophasic diameter changes were in the normal range (greater than or equal to 50%), consistent with normal central venous pressure. Carotid artery doppler 02/02/19: Findings consistent with 50-60% luminal diameter stenosis, left internal carotid artery. CXR 02/02/19: Cardiomegaly. No evidence of acute process. Nuclear stress test 02/02/19: Abnormal study after pharmacologic stress. Summary: 1. Myocardial perfusion imaging: There is a moderate sized, moderately intense, partially reversible defect involving the anterior and anterolateral wall(s). This suggests moderate ischemia in the distribution of the left anterior descending coronary artery. Overall ischemia: moderate. 2. The calculated left ventricular ejection fraction after stress: 42%. There is moderate hypokinesis involving the lateral wall(s) of the left ventricle. Labs on day of discharge: Labs from last 24 hours 02/03/19 02/03/19 02/03/19 06:50 06:50 06:35 WBC 16.33 H D RBC 4.54 Hgb 12.1 Hct 38.3 MCV 84.4 MCH 26.7 L MCHC 31.6 L RDW 14.5 Plt Count 243 MPV 10.4 Immature Gran % 0.3 Neutrophils % 70.4 Lymphocytes % 20.7 Monocytes % 7.7 Eosinophils % 0.7 Basophils % 0.2 Absolute Neutrophils 11.50 H Absolute Lymphocytes 3.38 Absolute Monocytes 1.26 H Absolute Eosinophils 0.11 Absolute Basophils 0.03 Sodium Potassium Chloride Carbon Dioxide Anion Gap BUN Creatinine Estimated GFR/1.73 m2 Glucose Calcium Magnesium Triglycerides Total Cholesterol LDL Cholesterol Direct HDL Cholesterol Urine Color Brown Urine Clarity Sl cloudy Urine pH 6.0 Ur Specific [place] >= 1.030 H Urine Protein 30 H Urine Ketones Negative Urine Blood Large H Urine Nitrite Negative Urine Bilirubin Negative Urine Urobilinogen 0.2 Ur Leukocyte Esterase Trace H Urine RBC >50 H Urine WBC Not Applicable Ur Epithelial Cells Not Applicable Urine Crystals Not Applicable Urine Bacteria Not Applicable Urine Mucus Not Applicable Ur Culture Indicated? No Urine Glucose Negative Urine Opiates Screen Negative Urine Methadone Screen Negative Ur Barbiturates Screen Negative Ur Tricyclics Screen Negative Ur Amphetamines Screen Negative U Benzodiazepines Scrn Negative Urine Cocaine Screen Negative Ur THC Screen Negative 02/03/19 06:35 WBC RBC Hgb Hct MCV MCH MCHC RDW Plt Count MPV Immature Gran % Neutrophils % Lymphocytes % Monocytes % Eosinophils % Basophils % Absolute Neutrophils Absolute Lymphocytes Absolute Monocytes Absolute Eosinophils Absolute Basophils Sodium 141 Potassium 3.7 Chloride 107 Carbon Dioxide 23.8 Anion Gap 10.2 BUN 17 Creatinine 0.89 Estimated GFR/1.73 m2 >= 60.00 Glucose 96 D Calcium 8.1 L Magnesium 1.9 Triglycerides 124 Total Cholesterol 113 LDL Cholesterol Direct 61 HDL Cholesterol 32 L Urine Color Urine Clarity Urine pH Ur Specific [place] Urine Protein Urine Ketones Urine Blood Urine Nitrite Urine Bilirubin Urine Urobilinogen Ur Leukocyte Esterase Urine RBC Urine WBC Ur Epithelial Cells Urine Crystals Urine Bacteria Urine Mucus Ur Culture Indicated? Urine Glucose Urine Opiates Screen Urine Methadone Screen Ur Barbiturates Screen Ur Tricyclics Screen Ur Amphetamines Screen U Benzodiazepines Scrn Urine Cocaine Screen Ur THC Screen PFSH Medical History Enlarged heart (Chronic) Migraines (Chronic) Obesity (BMI 30-39.9) (Chronic) Snoring (Chronic) Uncontrolled hypertension (Chronic) Hypertensive emergency (Resolved) Surgical History Hx of cholecystectomy (Chronic) Family History Maternal Grandmother Cancer Maternal Grandfather Cancer Other Hypertension Social History Smoking/Tobacco Use Status: Current every day Tobacco Type: cigarettes Smoking cigarettes per day: 5 Alcohol Intake: current Alcohol Intake frequency: holidays/special occasions only Substance use type: does not use Female Reproductive History Menstrual control method: none
--- NOTE | 2019-02-03 10:51 | DSE_ITS ---
Date of service: 02/03/19 Time of Service: 10:46 DS: Diagnosis Discharge Diagnosis (1) Positive cardiac stress test: Status: Acute (2) Hypertensive emergency without congestive heart failure: Status: Resolved (3) Syncope: Status: Acute (4) Elevated troponin: Status: Acute (5) Enlarged heart: Status: Acute (6) Ground glass opacity present on imaging of lung: Status: Suspected Asessment and Plan: Questionable per CT of the chest; no evidence of acute infection - should have outpatient follow up. (7) Leucocytosis: Status: Acute Asessment and Plan: Due to steroids used in ED. No evidence of acute infection. (8) Headache: Status: Resolved Asessment and Plan: Part of hypertensive emergency/encephalopathy. (9) LVH (left ventricular hypertrophy) due to hypertensive disease: Status: Chronic (10) Snoring: Status: Chronic Asessment and Plan: Has never had a sleep study (11) Tobacco abuse: Status: Chronic (12) Pulmonary hypertension: Status: Chronic (13) Diastolic dysfunction: Status: Chronic (14) Moderate mitral regurgitation: Status: Acute (15) Obesity (BMI 30-39.9): Status: Acute (16) Stenosis of left carotid artery greater than 50%: Status: Acute Asessment and Plan: 50-60%, per carotid artery doppler 02/02/19 Discharge Plan Disposition Patient Disposition: [facility] Condition: Fair Discharge Details Chief Complaint: Dizzy/Sync Reason For Visit: HYPERTENSIVE URGENCY, SYNCOPE, ELEVATED TROPONIN Admit Date/Time: 02/01/19 13:43 Admit Provider: Marzena Fernandez Attending Provider: Marzena Fernandez Primary Care Provider: None,None ED Provider: Pineda Queen Hospital Course Hospital Course: Ms Jarrett is a 43 year old female with long standing history of severe uncontrolled hypertension, not on medical therapy due to lack of medical insur ance/lack of primary care, as well as history of hypertensive heart disease, migraines, snoring, tobacco abuse, who was admitted to [facility] medical surgical floor on 02/01/19 and promptly transferred to the ICU due to a hypertensive emergency as well as a syncopal episode. The syncopal episode occurred earlier on the day of admission in setting of a severe headache and nausea. There was no chest pain preceding the admission. In the ED, EKG did demonstrate lateral T wave inversions, with no prior EKG to compare. The troponins were 0.11, 0.12, and 0.10 sequentially (cut off for normal at [facility] is 0.06). The patient was treated with IV and PO beta blockers, addition of amlodipine, re-institution of valsartan that she used to take some time ago. She was initiated on aspirin. She did require a labetalol infusion overnight between hospital day 1 and 2. There were no arrhythmias noted on gambling monitor. There was also an episode of chest pain that night, central, relieved with toradol. On hospital day 2, her BP's were much better controlled, so she was able to undergo a nuclear stress test as well as a transthoracic echocardiogram. The echo revealed severe LVH, LVEF of 60-65%, diastolic dysfunction, moderately dilated ascending aorta, moderate mitral regurgitation, pulmonary artery pressures in the range of 20-30 mm Hg. Nuclear stress test 02/02/19 was positive for a moderate reversible d efect in anterior and anterolateral freedman (distribution of LAD), moderate hypokinesis of lateral freedman of the left ventricle, and EF of 42% after stress. The patient did have chest pain during the stress test and did also have a hypertensive response with BP's as high as 194/110. Per recommendation of cardiology, she was loaded with plavix 300 mg, and is now on plavix of 75 mg PO daily. She is now also prescribed a statin. The patient also underwent a carotid ultrasound, which reveals a left carotid artery stenosis of 50-60%, which she will have to follow up as outpatient. Per recommendation of cardiology (Dr Krishnamurthy), the patient should undergo urgent inpatient cardiac catheterization, which [facility] does not perform. The patient was [place] [facility] Valle of Cardiology service [place] [facility] [place] The patient consents to transfer. It needs to be noted that case management with have to work with the patient on her insurance options and/or affordable medication options. We appreciate the assistance of [facility] [place] service and wish the patient well! Time spent providing care and arranging transfer for the patient is 60 minutes. Home Meds and New Rx's Prescriptions: New acetaminophen [Tylenol] 325 mg Tablet 325 - 650 mg PO Q4H PRN PRNQty: 0 RF: 0 atorvastatin [Lipitor] 20 mg Tablet 20 mg PO QPM Qty: 0 RF: 0 clopidogrel [Plavix] 75 mg Tablet 75 mg PO DAILY Qty: 0 RF: 0 amlodipine 5 mg Tablet 10 mg PO DAILY Qty: 0 RF: 0 magnesium hydroxide [Milk of Magnesia] 400 mg/5 mL Suspension 30 ml PO DAILY PRN PRNQty: 0 RF: 0 metoprolol tartrate 50 mg Tablet 50 mg PO BID Qty: 0 RF: 0 docusate sodium [Colace] 100 mg Capsule 100 mg PO TID PRN PRNQty: 0 RF: 0 aspirin 81 mg Tablet,Chewable 81 mg PO DAILY Qty: 0 RF: 0 alum-mag hydroxide-simeth [Mag-Al Plus] 200-200-20 mg/5 mL Suspension 30 ml PO Q2H PRN PRNQty: 0 RF: 0 lorazepam 1 mg Tablet 1 mg PO TID PRN (Reason: Anxiety) Qty: 0 RF: 0 nicotine 7 mg/24 hr Patch 24 Hour 7 mg Transdermal DAILY PRN PRNQty: 0 RF: 0 metoprolol tartrate 5 mg/5 mL Solution 5 mg IVP Q6H PRN PRN (Reason: SBP>180; hold for HR<60) Qty: 0 RF: 0 valsartan [Diovan] 80 mg Tablet 80 mg PO BID Qty: 0 RF: 0 potassium chloride [Klor-Con M20] 20 mEq Tablet,Er Particles/Crystals 40 meq PO DAILY Qty: 0 RF: 0 Discharge Instructions Activity:: Out of bed to chair Equipment/Supplies:: No Equipment Needed Diet:: NPO Discharge Orders Discharge Orders: Discharge Order (Routine); Ordered 02/03/19 Ordered By: Marzena Fernandez Exam Narrative Exam Narrative: General: Very pleasant obese female, sitting up in bed, NAD, A&Ox3 HEENT: Normocephalic, EOMI, MMM, no JVD Cardiovascular: RRR, no m/r/g Lungs: CTAB Gastrointestinal: abdomen is soft, nontender, nondistended Extremities: trace pedal pulses B, no e/c/c BLE's DS: Data Vitals/I&O Vitals and I&O: Vital Signs Temperature 36.0 C L 02/03/19 03:50 Temperature Source Temporal Artery Scan 02/03/19 03:50 Pulse 78 02/03/19 06:01 Pulse Rhythm Regular 02/01/19 15:35 Pulse 69 02/03/19 06:01 Respiratory Rate 16 02/03/19 06:01 Respiratory Effort Non-Labored 02/03/19 03:50 Respiratory Depth Normal 02/03/19 03:50 Respiratory Pattern Normal 02/03/19 03:50 Blood Pressure 140/84 02/03/19 06:01 Blood Pressure Mean 99 02/03/19 06:01 Blood Pressure Position Sitting 02/03/19 03:50 Pulse Oximetry 98 02/03/19 05:01 Oxygen Delivery Method Room Air 02/03/19 03:50 Oxygen Flow Rate 0 02/03/19 03:50 Pain Level 0 02/03/19 03:50 Comment 02/01/19 21:53 Intake & Output 02/02/19 02/02/19 02/03/19 11:59 23:59 11:59 Intake Total 1412 / 2812 1400 / 2812 1120 / 1120 Output Total 425 / 425 Balance 987 / 2387 1400 / 2387 1120 / 1120 Weight 115.3 kg 115.7 kg Intake: IV 1162 / 1162 1000 / 1000 Oral 250 / 1650 1400 / 1650 120 / 120 Output: Urine 425 / 425 Other: Urine Appearance Clear Urine Odor Normal Comment Pt voided on MS Pt voided on MS BR. UA/UDS obtained in a clean catch by Pt Voiding Methods Toilet Bedside Commode Completed studies during hospitalization [Text1]: CT head w/o, CTA head/neck 02/01/19: Normal noncontrast Cranial CT. Negative CT angiography neck and head. CTA chest 02/01/19: No evidence of pulmonary embolic disease. Mild cardiomegaly. 2D echo 02/02/19: 1. Left ventricle: The cavity size was normal. Wall thickness was increased in a pattern of severe LVH. Systolic function was normal. The estimated ejection fraction was 60-65%. Findings consistent with diastolic dysfunction. Doppler parameters are consistent with high ventricular filling pressure. 2. Aortic valve: Trileaflet. 3. Aortic root: The aortic root was mildly dilated. 4. Ascending aorta: The ascending aorta was moderately dilated. 5. Mitral valve: There was moderate regurgitation. 6. Left atrium: The atrium was mildly dilated. 7. Right ventricle: The cavity size was normal. Wall thickness was normal. Systolic function was normal. 8. Atrial septum: No defect or patent foramen ovale was identified. 9. Pulmonary arteries: Pulmonary systolic pressure was in the range of 20mm Hg to 30mm Hg. 10. Inferior vena cava: The vessel was patent and normal in size. The respirophasic diameter changes were in the normal range (greater than or equal to 50%), consistent with normal central venous pressure. Carotid artery doppler 02/02/19: Findings consistent with 50-60% luminal diameter stenosis, left internal carotid artery. CXR 02/02/19: Cardiomegaly. No evidence of acute process. Nuclear stress test 02/02/19: Abnormal study after pharmacologic stress. Summary: 1. Myocardial perfusion imaging: There is a moderate sized, moderately intense, partially reversible defect involving the anterior and anterolateral wall(s). This suggests moderate ischemia in the distribution of the left anterior descending coronary artery. Overall ischemia: moderate. 2. The calculated left ventricular ejection fraction after stress: 42%. There is moderate hypokinesis involving the lateral wall(s) of the left ventricle. Labs on day of discharge: Labs from last 24 hours 02/03/19 02/03/19 02/03/19 06:50 06:50 06:35 WBC 16.33 H D RBC 4.54 Hgb 12.1 Hct 38.3 MCV 84.4 MCH 26.7 L MCHC 31.6 L RDW 14.5 Plt Count 243 MPV 10.4 Immature Gran % 0.3 Neutrophils % 70.4 Lymphocytes % 20.7 Monocytes % 7.7 Eosinophils % 0.7 Basophils % 0.2 Absolute Neutrophils 11.50 H Absolute Lymphocytes 3.38 Absolute Monocytes 1.26 H Absolute Eosinophils 0.11 Absolute Basophils 0.03 Sodium Potassium Chloride Carbon Dioxide Anion Gap BUN Creatinine Estimated GFR/1.73 m2 Glucose Calcium Magnesium Triglycerides Total Cholesterol LDL Cholesterol Direct HDL Cholesterol Urine Color Brown Urine Clarity Sl cloudy Urine pH 6.0 Ur Specific [place] >= 1.030 H Urine Protein 30 H Urine Ketones Negative Urine Blood Large H Urine Nitrite Negative Urine Bilirubin Negative Urine Urobilinogen 0.2 Ur Leukocyte Esterase Trace H Urine RBC >50 H Urine WBC Not Applicable Ur Epithelial Cells Not Applicable Urine Crystals Not Applicable Urine Bacteria Not Applicable Urine Mucus Not Applicable Ur Culture Indicated? No Urine Glucose Negative Urine Opiates Screen Negative Urine Methadone Screen Negative Ur Barbiturates Screen Negative Ur Tricyclics Screen Negative Ur Amphetamines Screen Negative U Benzodiazepines Scrn Negative Urine Cocaine Screen Negative Ur THC Screen Negative 02/03/19 06:35 WBC RBC Hgb Hct MCV MCH MCHC RDW Plt Count MPV Immature Gran % Neutrophils % Lymphocytes % Monocytes % Eosinophils % Basophils % Absolute Neutrophils Absolute Lymphocytes Absolute Monocytes Absolute Eosinophils Absolute Basophils Sodium 141 Potassium 3.7 Chloride 107 Carbon Dioxide 23.8 Anion Gap 10.2 BUN 17 Creatinine 0.89 Estimated GFR/1.73 m2 >= 60.00 Glucose 96 D Calcium 8.1 L Magnesium 1.9 Triglycerides 124 Total Cholesterol 113 LDL Cholesterol Direct 61 HDL Cholesterol 32 L Urine Color Urine Clarity Urine pH Ur Specific [place] Urine Protein Urine Ketones Urine Blood Urine Nitrite Urine Bilirubin Urine Urobilinogen Ur Leukocyte Esterase Urine RBC Urine WBC Ur Epithelial Cells Urine Crystals Urine Bacteria Urine Mucus Ur Culture Indicated? Urine Glucose Urine Opiates Screen Urine Methadone Screen Ur Barbiturates Screen Ur Tricyclics Screen Ur Amphetamines Screen U Benzodiazepines Scrn Urine Cocaine Screen Ur THC Screen PFSH Medical History Enlarged heart (Chronic) Migraines (Chronic) Obesity (BMI 30-39.9) (Chronic) Snoring (Chronic) Uncontrolled hypertension (Chronic) Hypertensive emergency (Resolved) Surgical History Hx of cholecystectomy (Chronic) Family History Maternal Grandmother Cancer Maternal Grandfather Cancer Other Hypertension Social History Smoking/Tobacco Use Status: Current every day Tobacco Type: cigarettes Smoking cigarettes per day: 5 Alcohol Intake: current Alcohol Intake frequency: holidays/special occasions only Substance use type: does not use Female Reproductive History Menstrual control method: none
--- NOTE | 2019-02-03 13:09 | CMDISCH_ITS ---
- If Service Date Differs Date of service: 02/03/19 Time of Service: 13:07 LACE Index Scoring Tool - Questions: Length of Stay (in days): 2 Acuity (Admit via E.D.?): Yes E.D. Visits: 1 - Answers: Total Score: 6 Risk of Readmission: Low Risk Care Management Discharge Reason for Hospitalization: Syncope. Hypertensive urgency Discharge Plan: Bailee is going to be [place] [facility] [place] following a failed stress test. Patient/Family Education Needs: Discharge plan to be formulated at [facility] when ready. Services Needed at Discharge: Transportation
--- NOTE | 2019-02-03 15:10 | PDOC.CMPRO ---
- If Service Date Differs Date of service: 02/03/19 Time of Service: 15:10 Care Management Progress Note S/O: Bailee was sitting up in bed visiting with family when CM came to visit. She informed me that she is waiting for a bed at [facility]. If one is not available she states she told her physician that she is willing to go to [facility]. She voices concern about her condition and knows her stress test did not go well. I knew I flunked that test. It was horrible and I had pain everywhere. She expresses a desire to improve her health and compliance with recommended care and treatment. A: Bailee is a 43 year old woman admitted to [facility] on 02/01/19 with a diagnosis of syncope and hypertensive crisis. P: Bailee is in the ICU receiving IV antihypertensive medications to control her blood pressure. She is waiting for a bed at a tertiary care facility. She underwent a stress test yesterday which indicates she needs a cardiac catheterization emergently. Bailee will be transferred by ambulance, coordinated by contingents supervisor. CM to provide support to patient, family, care givers and discharge plan of care.
--- NOTE | 2019-02-03 15:20 | CMPROGNOTE_ITS ---
- If Service Date Differs Date of service: 02/03/19 Time of Service: 15:10 Care Management Progress Note S/O: Bailee was sitting up in bed visiting with family when CM came to visit. She informed me that she is waiting for a bed at [facility]. If one is not available she states she told her physician that she is willing to go to [facility]. She voices concern about her condition and knows her stress test did not go well. I knew I flunked that test. It was horrible and I had pain everywhere. She expresses a desire to improve her health and compliance with recommended care and treatment. A: Bailee is a 43 year old woman admitted to [facility] on 02/01/19 with a diagnosis of syncope and hypertensive crisis. P: Bailee is in the ICU receiving IV antihypertensive medications to control her blood pressure. She is waiting for a bed at a tertiary care facility. She underwent a stress test yesterday which indicates she needs a cardiac catheterization emergently. Bailee will be transferred by ambulance, coordinated by quarry supervisor open pit. CM to provide support to patient, family, care givers and discharge plan of care.
[2019-02-04 13:14] LABS: Renin Activity, Plasma <0.6 ng/mL/h
== END 2019-02-03 19:25 | disposition short-term general hospital (02) ==
LOC: ER 14:13 → MS 14:50 → ICU 02-02 07:47
PROVIDERS: Admitting Provider Internal Medicine; Emergency Provider Student in an Organized Health Care Education/Training Program; Visit Provider Internal Medicine
DX: I16.0 Hypertensive urgency (principal); R55 Syncope and collapse; I11.9 Hypertensive heart disease without heart failure; R77.8 Other specified abnormalities of plasma proteins; R91.8 Other nonspecific abnormal finding of lung field; I67.4 Hypertensive encephalopathy; R06.83 Snoring; I27.20 Pulmonary hypertension, unspecified; I65.22 Occlusion and stenosis of left carotid artery; I50.30 Unspecified diastolic (congestive) heart failure; I05.1 Rheumatic mitral insufficiency; D72.829 Elevated white blood cell count, unspecified; T38.0X5A Adverse effect of glucocorticoids and synthetic analogues, initial encounter; F17.210 Nicotine dependence, cigarettes, uncomplicated; Z91.120 Patient's intentional underdosing of medication regimen due to financial hardship; T46.5X6A Underdosing of other antihypertensive drugs, initial encounter
CPT/HCPCS: 36415; 70496; 70498; 71275; 78452; 80048; 80053; 80061; 80307; 81025; 83721; 93005; 96361; 96365; 96375; 99220; 99232; 99239; 99285; 99291; J1650; 70450; 71045; 81003; 81015; 82088; 83036; 83735; 83880; 84244; 84443; 84484; 85025; 85379; 93010; 93017; 93306; 93880; 99225; J0280; J1200; J1885; J2765; J2785; J2930; J3480; J3490